=== PATIENT | male | born 1950 | race Caucasian/White ===

== ENCOUNTER 2016-05-14 06:47 | Day surgery (SDC) | payer BC ==
[2016-05-14] MEDS ORDERED: Sodium Phosphate,Monobasic/Sodium Phosphate,Dibasic Enema 133 ML Bottle RECTAL ONE (07:00)
[2016-05-14] MEDS ORDERED: Dextrose 5%-Lactated Ringers 1,000 ML IV SCH (07:00)
[2016-05-14] MEDS ORDERED: fentaNYL 100 MCG/2 ML SDV ONE (07:16)
[2016-05-14] MEDS ORDERED: Propofol 200 MG/20 ML SDV ONE (07:16)
[2016-05-14] MEDS ORDERED: Midazolam 1 MG/ML 2 ML SDV ONE (07:16)
[2016-05-14 11:19] VITALS: BP 129/80
--- NOTE | 2016-05-24 22:29 | OR ---
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 POSTOPERATIVE DIAGNOSIS: No gross evidence of recurrence of polypoid disease and colorectal anastomosis. PROCEDURES: Flexible sigmoidoscopy with electrical ablation of mucosa at colorectal anastomosis (44885). ANESTHESIA: IV sedation. INDICATION FOR PROCEDURE: The patient is status post a recent excision of some polypoid tissue and his colorectal anastomosis, for followup is undergoing a repeat flexible sigmoidoscopy with biopsies and/or excision as indicated. Potential risks including bleeding and perforation were discussed and the patient wishes to proceed. DETAILS OF PROCEDURE: The patient was taken to the room and placed in a left lateral decubitus position. IV sedation was administered, after which the digital rectal exam was performed and was unremarkable. Colonoscope was then passed up to the level of the colorectal anastomosis, which was only a few cm in and at this time the mucosa appeared to be uniformly normal around the anastomosis. The previous fistula site likewise at this time appeared to be healed to reinforce and remove any microscopic remaining adenomatous cells and the anastomosis was then circumferentially ablated with electrocautery cautery and at that point, no further problems were noted and the procedure was concluded. Plan will be to repeat the flexible sigmoidoscopy in three months. Dariusz Sheikh MD /[id number]
== END 2016-05-14 10:00 | disposition home or self-care (01) ==
LOC: JP.SDS 06:47
PROVIDERS: ATTEND Surgery
DX: K63.89 Other specified diseases of intestine (principal); E11.9 Type 2 diabetes mellitus without complications; Z88.0 Allergy status to penicillin; Z88.8 Allergy status to other drugs, medicaments and biological substances
CPT/HCPCS: 45346; J2250; J2704; J3010; J7042

== ENCOUNTER 2016-07-12 05:37 | Inpatient (IN) | payer BC, MEDICARE ==
[2016-07-12] MEDS ORDERED: Linezolid 600 MG in Premix Bag 1 BAG IV ONE (06:00)
[2016-07-12] MEDS ORDERED: fentaNYL 50 MCG/HR Transdermal Patch TRDERM SCH (06:00)
[2016-07-12] MEDS ORDERED: Gabapentin 300 MG Cap PO ONE (06:00)
[2016-07-12] MEDS ORDERED: Celecoxib 200 MG Cap PO ONE (06:03)
[2016-07-12] MEDS ORDERED: Meropenem 500 MG SDV ONE (06:38)
[2016-07-12] MEDS ORDERED: Bupivacaine 0.5%/EPINEPHrine 1:200,000 50 ML MDV ONE (06:39)
[2016-07-12] MEDS ORDERED: Propofol 200 MG/20 ML SDV ONE ×2 (07:09→08:50)
[2016-07-12] MEDS ORDERED: Neostigmine Methylsulfate 1 MG/ML 5 ML Syringe ONE (07:09)
[2016-07-12] MEDS ORDERED: Succinylcholine/Normal Saline 200 MG/10 ML Syringe ONE (07:09)
[2016-07-12] MEDS ORDERED: fentaNYL 250 MCG/5 ML SDV ONE (07:09)
[2016-07-12] MEDS ORDERED: Dexamethasone 4 MG/ML SDV ONE (07:09)
[2016-07-12] MEDS ORDERED: Ondansetron 4 MG/2 ML SDV ONE (07:09)
[2016-07-12] MEDS ORDERED: Rocuronium 50 MG/5 ML Vial ONE (07:09)
[2016-07-12] MEDS: Dextrose 5%-Lactated Ringers 1,000 ML IV SCH ×4 (07:17→20:55)
[2016-07-12] MEDS ORDERED: Naloxone 0.4 MG/ML SDV IVPUSH PRN (07:26)
[2016-07-12] MEDS: Morphine PF 150 MG/30 ML PCA Syringe IV PRN (07:32)
[2016-07-12] MEDS ORDERED: Linezolid 200 MG/100 ML Bag IRR ONE (08:15)
[2016-07-12] MEDS ORDERED: fentaNYL 100 MCG/2 ML SDV ONE (08:52)
[2016-07-12] MEDS ORDERED: hydrOXYzine HCl 50 MG/ML SDV IM ONE (09:32)
[2016-07-12] MEDS ORDERED: fentaNYL 100 MCG/2 ML SDV IVPUSH ONE (09:44)
[2016-07-12] MEDS ORDERED: Naloxone 0.4 MG/ML SDV IV PRN (12:03)
[2016-07-12] MEDS ORDERED: hydrOXYzine HCl 25 MG Tab PO PRN (12:06)
[2016-07-12] MEDS ORDERED: hydrOXYzine HCl 50 MG/ML SDV IM PRN (12:06)
[2016-07-12] MEDS ORDERED: Cyclobenzaprine 10 MG Tab PO PRN (12:07)
[2016-07-12] MEDS: VERIFY FENTANYL PATCH TOP SCH ×3 (13:24→20:59)
[2016-07-12] MEDS: Gabapentin 300 MG Cap PO SCH ×2 (14:28→20:58)
[2016-07-12] MEDS: Linezolid 600 MG in Premix Bag 1 BAG IV SCH (17:35)
[2016-07-12] MEDS ORDERED: LORazepam 2 MG/ML MDV IVPUSH PRN (20:04)
[2016-07-12] MEDS: Docusate Sodium 100 MG Cap PO SCH (20:58)
[2016-07-12] MEDS: Pravastatin 20 MG Tab PO SCH (20:59)
[2016-07-13] MEDS: Dextrose 5%-Lactated Ringers 1,000 ML IV SCH ×4 (02:30→21:25)
[2016-07-13] MEDS: Linezolid 600 MG in Premix Bag 1 BAG IV SCH ×2 (05:11→17:11)
[2016-07-13] MEDS: Morphine PF 150 MG/30 ML PCA Syringe IV PRN (08:59)
[2016-07-13] MEDS: Docusate Sodium 100 MG Cap PO SCH ×2 (09:10→20:35)
[2016-07-13] MEDS: Celecoxib 200 MG Cap PO SCH (09:10)
[2016-07-13] MEDS: Gabapentin 300 MG Cap PO SCH ×3 (09:10→20:36)
[2016-07-13] MEDS: Bisacodyl 5 MG Tab PO SCH ×2 (09:10→20:36)
[2016-07-13] MEDS: VERIFY FENTANYL PATCH TOP SCH (09:13)
--- NOTE | 2016-07-13 10:23 | PN ---
DATE OF SERVICE: 07/13/2016 SUBJECTIVE: Randy is postop day #1. He states his pain is controlled. He was very sleepy last night. His fentanyl patch was taken off. He does use a CPAP and slept well after that was placed. REVIEW OF SYSTEMS: Remainder of review of systems negative for any pertinent positives and negatives. OBJECTIVE: GENERAL: Randy Pollack is a 65-year-old male, alert and orientated. SKIN: Warm and dry. Color is good. VITAL SIGNS: TPR 99.5, 67, 18, blood pressure 122/62. O2 by pulse ox is 94%. HEENT: Negative. NECK: Supple. HEART: Regular rate and rhythm. LUNGS: Clear. ABDOMEN: Dressings dry and intact. Wells catheter put out 2760 mL of a light william urine. EXTREMITIES: Without peripheral edema. ASSESSMENT: Laparoscopic turned to open laparotomy with lysis of extensive adhesions and repair of recurrent incisional hernia with mesh, repair of incarcerated umbilical hernia with mesh, and excision of nodular mass of right lower quadrant abdominal wall 5.5 cm and placement of Vicryl mesh for recurrent incarcerated incisional and incarcerated umbilical hernia nodule, peritoneal mass underlining right lower quadrant abdominal wall, and extensive intraabdominal adhesions, on 07/12/2016. PLAN: 1. Decrease IV D5LR to 100 mL per hour. 2. Discontinue Wells. 3. Full liquid diet. 4. Dulcolax tabs 2 b.i.d. scheduled. 5. Aspirin 81 mg p.o. at bedtime. 6. Pravachol 10 mg p.o. at bedtime. 7. Good pulmonary toilet encouraged. 8. We will evaluate p.r.n. or in a.m. Maria Luisa Hale PA-C /[id number]
[2016-07-13] MEDS ORDERED: Ibuprofen 600 MG Tab PO PRN (17:36)
[2016-07-13] MEDS: Pravastatin 20 MG Tab PO SCH (20:36)
[2016-07-13] MEDS: Aspirin 81 MG Tab.EC PO SCH (20:36)
[2016-07-13] MEDS ORDERED: Pravastatin 20 MG Tab PO SCH (21:00)
[2016-07-14] MEDS: Linezolid 600 MG in Premix Bag 1 BAG IV SCH (05:33)
[2016-07-14] MEDS ORDERED: Bisacodyl 5 MG Tab PO PRN (07:23)
[2016-07-14] MEDS: Dextrose 5%-Lactated Ringers 1,000 ML IV SCH ×2 (08:29→19:54)
[2016-07-14] MEDS: Celecoxib 200 MG Cap PO SCH (08:31)
[2016-07-14] MEDS: Docusate Sodium 100 MG Cap PO SCH ×2 (08:31→20:58)
[2016-07-14] MEDS: oxyCODONE 5 MG Tab PO SCH ×3 (08:31→23:10)
[2016-07-14] MEDS: Gabapentin 300 MG Cap PO SCH ×3 (08:32→20:58)
--- NOTE | 2016-07-14 09:53 | PN ---
DATE OF SERVICE: 07/14/2016 SUBJECTIVE: Randy states his pain has been controlled. He did have a temp max of 101.4, and it did come down a little bit. He has been up ambulating. Denies any other associated signs and symptoms. OBJECTIVE: GENERAL: Randy is a 65-year-old male. VITAL SIGNS: TPR is 99.5, 64, 12, blood pressure 146/80. HEENT: Negative. NECK: Supple. HEART: Regular rate and rhythm. LUNGS: Clear. ABDOMEN: Dressings dry and intact. Abdominal binder is on. EXTREMITIES: SCDs are currently off presently. NEURO: Intact. SKIN: Warm and dry. ASSESSMENT: Laparoscopy turned to open laparotomy with lysis of extensive adhesions; repair of recurrent incisional hernia with mesh; repair of incarcerated umbilical hernia with mesh; excision of nodule or mass of right lower quadrant abdominal wall, 5.5 cm; placement of Vicryl mesh for recurrent incarcerated incisional and incarcerated umbilical hernia; nodule of the peritoneal mass underlining right lower quadrant abdominal wall and extensive intraabdominal adhesions, on 07/12/2016. PLAN: 1. Regular diet. 2. Dulcolax tabs changed to p.r.n. 3. Oxycodone 10 mg p.o. q.8 hours scheduled. 4. Continue good pulmonary toilet. 5. 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 6. We will evaluate p.r.n. or in a.m. Maria Luisa Hale PA-C /[id number]
[2016-07-14] MEDS: Linezolid 600 MG Tab PO SCH (17:43)
[2016-07-14] MEDS: Pravastatin 20 MG Tab PO SCH (20:58)
[2016-07-14] MEDS: Aspirin 81 MG Tab.EC PO SCH (20:58)
[2016-07-15] MEDS: Morphine PF 150 MG/30 ML PCA Syringe IV PRN (01:29)
[2016-07-15] MEDS: Dextrose 5%-Lactated Ringers 1,000 ML IV SCH (05:43)
[2016-07-15] MEDS: Linezolid 600 MG Tab PO SCH ×2 (05:43→18:54)
[2016-07-15] MEDS ORDERED: Sodium Chloride 0.9% 10 ML Syringe IV SCH (07:30)
[2016-07-15] MEDS ORDERED: oxyCODONE 5 MG Tab PO SCH (08:00)
[2016-07-15] MEDS: Celecoxib 200 MG Cap PO SCH (08:44)
[2016-07-15] MEDS: Docusate Sodium 100 MG Cap PO SCH ×2 (08:44→19:59)
[2016-07-15] MEDS: Gabapentin 300 MG Cap PO SCH ×3 (08:44→19:59)
[2016-07-15] MEDS: oxyCODONE 5 MG Tab PO SCH ×2 (15:31→21:51)
[2016-07-15] MEDS: Pravastatin 20 MG Tab PO SCH (19:59)
[2016-07-15] MEDS: Aspirin 81 MG Tab.EC PO SCH (20:00)
[2016-07-16] MEDS: oxyCODONE 5 MG Tab PO SCH (04:00)
[2016-07-16] MEDS: Linezolid 600 MG Tab PO SCH (06:01)
[2016-07-16 07:49] VITALS: BP 162/84
--- NOTE | 2016-07-16 09:59 | PN ---
DATE OF SERVICE: 07/15/2016 The patient has been afebrile with stable vital signs. He's required a little bit of MEDICAL HISTORIAN in addition to the oral oxycodone. We will move the oxycodone up to 10 mg q.6 hours and then switch the Dilaudid to oral version. If his pain control on this regimen is adequate, he will likely be ready to go home tomorrow. Otherwise, he is eating well and moving his bowels satisfactorily. Dariusz Sheikh MD /[id number]
--- NOTE | 2016-07-16 14:20 | DISCH ---
FINAL DIAGNOSES: 1. Recurrent incarcerated incisional and incarcerated umbilical hernias. 2. Nodular peritoneal mass underlying right lower quadrant abdominal wall. 3. Extensive intraabdominal adhesions. 4. History of hepatitis C. 5. Type 2 diabetes mellitus, diet controlled. 6. History of colonic adenomatous polyps. OPERATIVE PROCEDURE: This was done on 07/12/2016, laparoscopy converted to open laparotomy with lysis of extensive adhesions; 1. Repair of recurrent incarcerated incisional hernia with mesh. 2. Repair of incarcerated umbilical hernia with mesh. 3. Excision of peritoneal nodular mass underlying right lower quadrant abdominal wall. 4. Placement of Vicryl mesh to displace viscera from pelvic and abdominal wall to limit recurrent adhesion formation. HOSPITAL COURSE: This is a 65-year-old male presenting with a quite large recurrent incisional hernia. The abdomen was initially approached laparoscopically, but it was found to be quite hostile in terms of very extensive adhesions. Given this, an open laparotomy was used and after lysis of extensive adhesions, the hernia was repaired as outlined above. There was a nodular mass with maybe some fat necrosis underlying the right lower quadrant abdominal wall. Pathology on this is pending, but again this is most likely going to be an area of fat necrosis. Postoperatively, the patient is presently tolerating a regular diet and moving his bowels. He is normally on oxycodone 10 mg 2 a day. At the time of discharge, he will be taking oxycodone 10 mg q.4 to 6 hours p.r.n. Additional 50 of those are written. Otherwise, he will continue his previous home medications. Follow up with Dr. Sheikh in [facility] on 07/21/2016.
--- NOTE | 2016-07-21 15:25 | OR ---
DATE OF PROCEDURE: 07/12/2016 PREOPERATIVE DIAGNOSIS: Recurrent incisional hernia. POSTOPERATIVE DIAGNOSES: 1. Recurrent incarcerated incisional hernia. 2. Incarcerated umbilical hernia. 3. Nodular peritoneal mass underlying right lower quadrant abdominal wall. 4. Extensive intra-abdominal adhesions. OPERATIVE PROCEDURE: Diagnostic laparoscopy converted to laparotomy with lysis of extensive adhesions and: 1. Repair of recurrent incarcerated incisional hernia with mesh (83092, 25139). 2. Repair of incarcerated umbilical hernia (73161). 3. Excision of peritoneal nodular mass underlying right lower quadrant abdominal wall (22385). 4. Placement of Vicryl mesh to displace small bowel from pelvic and abdominal castañeda to limit recurrent adhesion formation (61632). ANESTHESIA: General. PACS SPECIALIST: Maria Luisa Hale PA-C. INDICATIONS FOR PROCEDURE: This is a 65-year-old male presenting with a large recurrent incisional hernia, it probably containing some incarcerated component based on the clinical findings. The plan is to proceed with a diagnostic laparoscopy, laparotomy if necessary, and repair of the hernia with mesh. Potential risks include bleeding, infection, injury to underlying viscera, problems with the mesh becoming infected or the hernia recurring as well as possibility of cardiopulmonary, septic, or hemorrhagic complications leading to were all discussed, and the patient wishes to proceed. DETAILS OF PROCEDURE: The patient was taken to the operating room and placed in a supine position. After general endotracheal anesthesia was induced, a Wells catheter was inserted and the abdomen was prepped and draped. In the right lateral mid abdomen, a transverse incision was made. The peritoneal cavity entered under direct vision and inflated to 15 mmHg pressure with CO2. The patient was noted to have essentially a capsular adhesions throughout most of the peritoneal cavity and the decision was made at that point to proceed with an open approach. The trocar was removed and the peritoneal cavity deflated. A midline incision was then made predominately in the lower half of the abdomen, but extending somewhat above the umbilicus. This was carried down through the skin and subcutaneous tissue. Two components of the hernia were identified, 1 was an incisional hernia. This largely was extending above the umbilicus and there was also a large umbilical hernia, both of these contained incarcerated component with small and large bowel along with omentum incarcerated within the hernia sac. These were then contralaterally taken down with a combination of cautery and blunt dissection, and in the case of the bowel attachments close to the plane of dissection with sharp dissection. Eventually, all of the viscera were returned to the abdomen and hernia sac excised standing at each location. During the course of dissection, the patient was noted to have a nodular mass underlying the right lower quadrant abdominal wall. This would be potentially some fat necrosis related to the omental adhesions in that area but the diagnosis certainly is not entirely certain. This was excised and sent as pathologic specimen. The specimen when delivered from the abdomen, was measured at 5.5 cm. At this point, a Ventrio ST hernia patch and mesh was mapped out. This was a 22 x 27 cm mesh following the fascia in the midline were to approximate the final location for the fixation of the mesh. There were small wu made on the abdominal wall where subsequent sutures were passed to pull the sutures up and attach to the mesh. The mesh was also then marked and 2-0 Vicryl sutures placed on the polypropylene mesh roughly 5 to 6 cm intervals around the circumference of the mesh. Mesh was soaked in antibiotic-containing saline solution and then placed in intraperitoneal location with the polypropylene side facing the abdominal wall at the premarked location, the sutures were then pulled up. Due to the extent of the previous adhesions and the desire to minimize additional adhesion formation, a 12 inch segment of Vicryl mesh was then placed underneath the incision and extended from there down along the pelvic and abdominal castañeda. The lower half of the sutures were then placed and then pulled up thus fixing the mesh in general position covering both the incisional and umbilical hernias sites. Once easily replaced, the abdomen was irrigated with antibiotic-containing saline solution, once again underside of the shelf of the mesh, mesh was then additionally fixed circumferentially with titanium tacking screws. Once these were in place, the midline fascia was then approximated with #2 Vicryl stitch closing the fascia in the vertical midline in terms of orientation. The subcutaneous tissue was then approximated with some 3-0 Vicryl stitch and the skin with ruddy. No drains were placed. The patient was taken to the recovery room in satisfactory condition. Physician doctor assistant, Maria Luisa Hale, played an essential role in assisting in this case, helping to position the patient, retract structures as needed, as well as suturing and stapling when indicated. Her presence improved the patient's safety and decreased the operative time. Dariusz Sheikh MD /[id number]
== END 2016-07-16 08:20 | disposition home or self-care (01) | DRG 228 ==
LOC: JP.2SS 05:37 → UNDOADMIN 05:37 → JP.MS 05:37 → JP.SDS 05:37 → EDSTATUS 07:30 → JP.2SS 11:05
PROVIDERS: ADMIT Surgery; ATTEND Surgery
PROC: 3E0M05Z Introduction of Adhesion Barrier into Peritoneal Cavity, Open Approach (ICD-10-PCS; principal; 2016-07-12)
PROC: 0WJF4ZZ Inspection of Abdominal Wall, Percutaneous Endoscopic Approach (ICD-10-PCS; principal; 2016-07-12)
PROC: 0DBW0ZZ Excision of Peritoneum, Open Approach (ICD-10-PCS; principal; 2016-07-12)
PROC: 0WUF0JZ Supplement Abdominal Wall with Synthetic Substitute, Open Approach (ICD-10-PCS; principal; 2016-07-12)
PROC: 0WQF0ZZ Repair Abdominal Wall, Open Approach (ICD-10-PCS; principal; 2016-07-12)
DX: K42.0 Umbilical hernia with obstruction, without gangrene (principal); K43.0 Incisional hernia with obstruction, without gangrene; K66.8 Other specified disorders of peritoneum; G47.30 Sleep apnea, unspecified; E11.9 Type 2 diabetes mellitus without complications; M19.90 Unspecified osteoarthritis, unspecified site; E78.5 Hyperlipidemia, unspecified; Z79.84 Long term (current) use of oral hypoglycemic drugs; Z79.82 Long term (current) use of aspirin; Z88.0 Allergy status to penicillin; B18.2 Chronic viral hepatitis C; Z85.828 Personal history of other malignant neoplasm of skin; Z87.891 Personal history of nicotine dependence
CPT/HCPCS: 88302; 88304; 94762; A9270-GY; C1781; J1100; J2020; J2185; J2270; J2405; J2704; J3010; J3410; J7042

== ENCOUNTER 2016-09-30 05:35 | Day surgery (SDC) | payer BC, MEDICARE ==
[2016-09-30] MEDS ORDERED: Dextrose 5%-Lactated Ringers 1,000 ML IV SCH (06:00)
[2016-09-30] MEDS ORDERED: Propofol 200 MG/20 ML SDV ONE (07:03)
[2016-09-30] MEDS ORDERED: fentaNYL 100 MCG/2 ML SDV ONE (07:03)
[2016-09-30 08:52] VITALS: BP 153/79
--- NOTE | 2016-10-05 08:30 | OR ---
DATE OF PROCEDURE: 09/30/2016 PREOPERATIVE DIAGNOSIS: History of polypoid changes at the colorectal anastomosis. POSTOPERATIVE DIAGNOSIS: No evident recurrent polypoid changes at colorectal anastomosis. OPERATIVE PROCEDURE: Flexible sigmoidoscopy. ANESTHESIA: IV sedation. INDICATION FOR PROCEDURE: A 65-year-old male, status post previous low anterior resection, who recently was noted to have some polypoid changes, which were both excised by means of biopsy forceps, as well obliterated by means of cautery. He is to have a followup flexible sigmoidoscopy at this time for the purpose of checking to see if there is any recurrent polypoid disease and treat that, if identified. Potential risks including bleeding and perforation were discussed, and the patient wishes to proceed. DETAILS OF PROCEDURE: The patient was taken to the operative room after receiving the preoperative enema in the preoperative area. IV sedation was given, after the patient was placed in a left lateral decubitus position, and then the initial digital rectal exam was performed, and it was unremarkable. The flexible sigmoidoscope was then passed into the rectum and up to the level of the colorectal anastomosis. There is a fair bit of stool present, and using water, this was eventually able to be cleared, and the anastomosis at this point appeared to be quite unremarkable, there being no evident recurrent polypoid disease and less in the way of inflammation that had been seen previously. The scope easily passed through the area and above that no additional pathology was seen. The scope was withdrawn and the procedure concluded. The patient will be set up for a full colonoscopy probably in January, with formal prep to be done at that time. Dariusz Sheikh MD /[id number]
== END 2016-09-30 08:45 | disposition home or self-care (01) ==
LOC: JP.SDS 05:35
PROVIDERS: ATTEND Surgery
DX: Z86.010 Personal history of colon polyps (principal); E11.9 Type 2 diabetes mellitus without complications; E78.00 Pure hypercholesterolemia, unspecified; Z88.0 Allergy status to penicillin; Z88.8 Allergy status to other drugs, medicaments and biological substances
CPT/HCPCS: 45330; J2704; J3010; J7042

== ENCOUNTER 2017-01-24 06:03 | Day surgery (SDC) | payer BC, MEDICARE ==
[2017-01-24] MEDS ORDERED: Dextrose 5%-Lactated Ringers 1,000 ML IV SCH (06:30)
[2017-01-24] MEDS ORDERED: Propofol 200 MG/20 ML SDV ONE (07:16)
[2017-01-24] MEDS ORDERED: fentaNYL 100 MCG/2 ML SDV ONE (07:16)
[2017-01-24] MEDS ORDERED: Midazolam 1 MG/ML 2 ML SDV ONE (07:16)
[2017-01-24 09:26] VITALS: BP 160/87
--- NOTE | 2017-01-27 10:34 | OR ---
DATE OF PROCEDURE: 01/24/2017 PREOPERATIVE DIAGNOSIS: History of adenomatous colon polyps, along with recurrent polyp at colorectal anastomosis. POSTOPERATIVE DIAGNOSES: 1. Raised area of soft tissue overlying colorectal anastomosis at the point of exposed staple. 2. Raised area in ascending colon. OPERATIVE PROCEDURES: Flexible colonoscopy with: 1. Biopsy of raised area of ascending colon (07617). 2. Injection of Zina ink at the site of the ascending colon lesion (23251). 3. Removal of foreign body (staple at the colorectal anastomosis) (93107). 4. Biopsies of soft tissue at colorectal anastomosis adjacent to a staple. 5. Ablation of the mucosa at the biopsy site of the colorectal anastomosis (82168). ANESTHESIA: IV sedation. INDICATION FOR PROCEDURE: A 66-year-old, status post a low anterior resection for what turned out to be a sessile adenomatous polyp. The patient has had some problems with stricturing in that area and did have some recurrent polypoid disease at the anastomosis. This was treated by means of excision and ablation, and he is here for followup of that to make sure nothing is recurring. He is also due, at this point, for a full colonoscopy. Potential risks of the procedure, including bleeding and perforation, were discussed, and the patient wishes to proceed. PROCEDURE IN DETAIL: The patient was taken to the operating room and placed in a left lateral decubitus position. IV sedation was administered, after which the initial digital rectal exam was performed and was unremarkable. Colonoscope was then passed up into the rectum and up to the area of the colorectal anastomosis. There was roughly a 2 mm bit of raised tissue adjacent to an exposed staple. Otherwise, the mucosa at this point appeared to be well healed with no signs of any recurrent polypoid disease. The scope was then passed to the level of the cecum. The patient had a somewhat raised lesion in the ascending colon. This may be simply normal mucosa with perhaps some lipomatous tissue underlying it, but biopsies were obtained to make sure this was not a flat-type polyp. Multiple biopsies were obtained at that level. The submucosa adjacent to it was injected with Zina ink in the event that findings were such that he needed to have a subsequent resection. The remainder of the colon, apart from the findings at the colorectal anastomosis, was unremarkable, apart from there being very few diverticula in the remaining left colon. At this point the foreign body, consisting of a staple, was removed. I suspect this was causing granulation tissue to form. That tissue, which was raised, adjacent to it was essentially excised by means of the biopsy forceps, and then, in the event this is polypoid tissue, that area was then ablated with the tip of the electrical cautery snare. At that point, no further problems were noted, and the scope was withdrawn. We will contact the patient regarding the pathology report and develop a plan based on that report. Dariusz Sheikh MD /[id number]
== END 2017-01-24 09:27 | disposition home or self-care (01) ==
LOC: JP.SDS 06:03
PROVIDERS: ATTEND Surgery
DX: Z09 Encounter for follow-up examination after completed treatment for conditions other than malignant neoplasm (principal); K57.30 Diverticulosis of large intestine without perforation or abscess without bleeding; T18.4XXA Foreign body in colon, initial encounter; D17.5 Benign lipomatous neoplasm of intra-abdominal organs; E11.9 Type 2 diabetes mellitus without complications; Z90.49 Acquired absence of other specified parts of digestive tract; G47.33 Obstructive sleep apnea (adult) (pediatric); E78.5 Hyperlipidemia, unspecified; Z86.010 Personal history of colon polyps; Z79.82 Long term (current) use of aspirin; Z79.899 Other long term (current) drug therapy; Z98.0 Intestinal bypass and anastomosis status; Z87.891 Personal history of nicotine dependence; Z99.89 Dependence on other enabling machines and devices; Z86.19 Personal history of other infectious and parasitic diseases; Z88.5 Allergy status to narcotic agent; Z88.0 Allergy status to penicillin
CPT/HCPCS: 45379; 45380; 45381; 45388; 88305; J2250; J2704; J3010; J7042

== ENCOUNTER 2018-03-13 05:30 | Day surgery (SDC) | payer BC ==
[~2018-03-13 05:30] MED LIST: Dextrose 5%-Lactated Ringers 1,000 ML IV SCH
[2018-03-13] MEDS ORDERED: Lactated Ringers 1,000 ML IV SCH (06:00)
[2018-03-13] MEDS ORDERED: Meropenem 500 MG in Sodium Chloride 0.9% 50 ML IV ONE (07:00)
[2018-03-13] MEDS ORDERED: Propofol 200 MG/20 ML SDV ONE (07:06)
[2018-03-13] MEDS ORDERED: fentaNYL 100 MCG/2 ML SDV ONE (07:06)
[2018-03-13] MEDS ORDERED: Midazolam 1 MG/ML 2 ML SDV ONE (07:06)
[2018-03-13] MEDS ORDERED: Ondansetron 4 MG/2 ML SDV IVPUSH ONE (08:20)
[2018-03-13] MEDS ORDERED: Ondansetron 4 MG Tab.DIS PO ONE (10:05)
[2018-03-13 10:18] VITALS: BP 159/96
--- NOTE | 2018-03-15 10:43 | OR ---
DATE OF PROCEDURE: 03/13/2018 PREOPERATIVE DIAGNOSIS: History of colonic adenomatous polyps. POSTOPERATIVE DIAGNOSIS: Normal colonoscopic examination. OPERATIVE PROCEDURE: Flexible colonoscopy. ANESTHESIA: IV sedation. INDICATION FOR PROCEDURE: This is a 67-year-old status post a sigmoid resection for an adenomatous polyp. He then had some leak from the anastomosis, which was treated conservatively and then had some recurrent adenomatous polypoid changes at the anastomosis that had previously been excised and/or ablated. The plan is to proceed with followup colonoscopy with biopsies and/or polypectomy as indicated. Potential risks including bleeding and perforation were discussed, and the patient wishes to proceed. DETAILS OF PROCEDURE: The patient was taken to the operating room and placed in a left lateral decubitus position. IV sedation was administered, after which the initial digital rectal exam was performed and was unremarkable. Colonoscope was then passed into the rectum with retroflexion revealing uncomplicated hemorrhoidal columns. The scope was eventually passed to the cecum. The area of the colorectal anastomosis was well visualized, and there was no evidence of any recurrent polypoid disease. There was some distortion of this area related to the postoperative scarring, but no stricturing or other specific pathology seen. The remainder of the examination showed some diverticular disease in the remaining left colon, but otherwise no additional polyps or other signs of neoplasia. The scope was then withdrawn, the above findings were reconfirmed, and the procedure then concluded. Given the patient's history, I think we probably would intend to repeat a colonoscopy in 1 year to make sure that nothing is recurring at the anastomotic site at that point. Dariusz Sheikh MD Job #: [id number]
== END 2018-03-13 10:30 | disposition home or self-care (01) ==
LOC: JP.SDS 05:30
PROVIDERS: ATTEND Surgery
DX: Z12.11 Encounter for screening for malignant neoplasm of colon (principal); K57.30 Diverticulosis of large intestine without perforation or abscess without bleeding; K64.9 Unspecified hemorrhoids; E11.9 Type 2 diabetes mellitus without complications; Z86.010 Personal history of colon polyps; Z98.0 Intestinal bypass and anastomosis status
CPT/HCPCS: 45378; A9270; J2185; J2250; J2405; J2704; J3010; J7042; J7050

== ENCOUNTER 2018-10-30 06:03 | Day surgery (SDC) | payer BC ==
[2018-10-30] MEDS ORDERED: Lactated Ringers 1,000 ML IV SCH (06:30)
[2018-10-30] MEDS ORDERED: Nozin Nasal Sanitizer NASBOTH ONE (06:30)
[2018-10-30] MEDS ORDERED: Bupivacaine 0.5% 30 ML SDV ONE (06:46)
[2018-10-30] MEDS ORDERED: ceFAZolin 1 GM in Premix Bag 1 BAG IV ONE (07:30)
[2018-10-30] MEDS ORDERED: Glycopyrrolate 0.2 MG/ML 5 ML MDV ONE (07:35)
[2018-10-30] MEDS ORDERED: Propofol 200 MG/20 ML SDV ONE (07:35)
[2018-10-30] MEDS ORDERED: Neostigmine Methylsulfate 1 MG/ML 5 ML Syringe ONE (07:35)
[2018-10-30] MEDS ORDERED: Ondansetron 4 MG/2 ML SDV ONE (07:35)
[2018-10-30] MEDS ORDERED: Rocuronium 50 MG/5 ML Vial ONE (07:35)
[2018-10-30] MEDS ORDERED: Dexamethasone 4 MG/ML SDV ONE (07:35)
[2018-10-30] MEDS ORDERED: fentaNYL 250 MCG/5 ML SDV ONE (07:35)
[2018-10-30] MEDS ORDERED: Acetaminophen/oxyCODONE 325-10 MG Tab PO PRN (10:32)
[2018-10-30 10:38] VITALS: BP 147/90; PULSE 64
--- NOTE | 2018-11-15 15:30 | OR ---
DATE OF PROCEDURE: 10/30/2018 SURGEON: Scott Harris MD PREOPERATIVE DIAGNOSES: 1. Medial meniscus tear, left knee. 2. Chondromalacia, left knee. POSTOPERATIVE DIAGNOSES: 1. Degenerative medial meniscus tear, left knee. 2. Chondromalacia, medial femoral condyle and patellofemoral joint. 3. Loose bodies. PROCEDURE: Arthroscopy of left knee with debridement of posterior horn medial meniscus, chondroplasty medial femoral condyle and trochlear groove, and removal of multiple loose bodies. ANESTHESIA: General. INDICATIONS: Mr. Pollack is a 68-year-old gentleman with a history of progressive pain in his left knee over the past several weeks. Pain is in the medial aspect of the knee. He has failed conservative treatment. MRI is consistent with degenerative tear of the medial meniscus and early degenerative changes of the medial compartment. He now presents for arthroscopic debridement of meniscus. Risks, benefits, potential complications of the procedure were discussed. PROCEDURE IN DETAIL: After adequate anesthesia was obtained, the patient placed supine with a tourniquet about the left upper thigh. Left leg was prepped and draped in the sterile fashion. Leg was exsanguinated and tourniquet inflated to 300 mmHg pressure. Standard inferior, medial, and lateral portals were established. Immediately upon placing the scope into the suprapatellar pouch, loose articular cartilage fragments were visible. Majority of these was very small with 2 larger ones measuring approximately 3 x 2 x 2 mm. Pulling back into the patellofemoral joint, grade 3 and early grade 4 changes were noted in the main portion of the trochlea. No significant chondral flaps were present. Posterior aspect of the patella showed some softening and some early grade 2 changes without full-thickness loss. Moving into the medial compartment, degenerative changes noted in the posterior horn of the meniscus without a chloe tear. Additional small loose articular fragments were present. Grade 3 and early grade 4 changes noted over the medial femoral condyle with 2 areas of chondral flaps, which were unstable. Chondroplasty was performed over the medial femoral condyle, removing loose articular fragments. Loose bodies were removed with the shaver. Intercondylar notch revealed intact ACL and PCL. Lateral compartment showed intact articular cartilage as well as intact meniscus. Further loose bodies were removed from the suprapatellar pouch. The medial and lateral gutters were evaluated and no other loose bodies were identified. The knee was drained. Scope was withdrawn. Port sites were closed in a standard fashion, infiltrated with Marcaine, and a sterile dressing was applied. The patient tolerated the procedure very well. There were no complications. He was taken from the operating room in stable condition. Scott Harris MD /[id number]
== END 2018-10-30 11:10 | disposition home or self-care (01) ==
LOC: JP.SDS 06:03
PROVIDERS: ATTEND Specialist
DX: M23.322 Other meniscus derangements, posterior horn of medial meniscus, left knee (principal); M22.42 Chondromalacia patellae, left knee; E11.9 Type 2 diabetes mellitus without complications; E78.5 Hyperlipidemia, unspecified; B19.20 Unspecified viral hepatitis C without hepatic coma; Z88.0 Allergy status to penicillin; Z88.5 Allergy status to narcotic agent; Z79.82 Long term (current) use of aspirin; Z79.1 Long term (current) use of non-steroidal anti-inflammatories (NSAID); Z79.899 Other long term (current) drug therapy
CPT/HCPCS: 29877; 36415; 80048; 85027; A9270; J0690; J1100; J2405; J2704; J2710; J3010; J3490; J7120

== ENCOUNTER 2019-09-21 07:50 | Day surgery (SDC) | payer BC ==
[~2019-09-21 07:50] MED LIST changes: -Dextrose 5%-Lactated Ringers 1,000 ML IV SCH; +Midazolam 1 MG/ML 2 ML SDV ONE; +Propofol 200 MG/20 ML SDV ONE; +fentaNYL 100 MCG/2 ML SDV ONE
[2019-09-21] MEDS ORDERED: Dextrose 5%-Lactated Ringers 1,000 ML IV SCH (08:15)
[2019-09-21 11:50] VITALS: BP 129/69; PULSE 57
--- OUTSIDE RECORDS SUMMARY | 2019-09-25 11:38 | XMSREPORT | Referral Summary ---
:1950 Author Organization [employer] Address [address] [address] Phone Care Team Providers Name Role Phone Neil Sunshine APRN, CNP Primary Care Provider Reason for Referral Office Visit (Routine) Status Reason Specialty Diagnoses / Referred By Referred To Procedures Contact Contact New Request Diagnoses Controlled type 2 diabetes mellitus without complication, without long-term current use of insulin (HCC) Goyo Sunshine, Procedures CONTINUE CURRENT WEIGHT MGMT TREATMENT PLAN ALEK EDWARDS [address] [place] [address] Office Visit (Routine) Status Reason Specialty Diagnoses / Referred By Referred To Procedures Contact Contact Authorized Diagnoses H/O adenomatous polyp of colon Goyo Sunshine, Dariusz Gallardo MD APRN, PRODUCTION OFFICER [address] [facility] [id number] [place] [address] Phone: [phone] Phone: Fax: Reason for Visit Reason Comments Follow Up DM follow up labs Encounter Details Date Type Department Care Team Description 08/23/2019 Telehealth Mapidy-Goyo Guerar, Contr olled type 2 diabetes mellitus without complication, without long-term current use of insulin (HCC) (Primary Dx); [facility] INTERNAL [employer] 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 Devices Supply requested: C-pap supplies Diagnosis: 786.03 1 Each Active MISC Length of need lifetime 3 Misc. Devices Supply requested: 100 Each 4 Active Misc edin test strips 5 and lancets Diagnosis: 250.00 Misc. Devices Supply requested: 1 Each Active Misc Auto pap with 8 5 to 15 cm of water pressure. Diagnosis Obstructive sleep apnea. Misc. Devices by Does not apply 0 Active (BIPAP DEVICE) route. 6 loperamide Take 1 Cap by 60 Cap 12 Activ e (IMODIUM) 2 MG mouth four times 8 capsule a day as needed for Diarrhea. aspirin EC 81 MG Take 81 mg by 0 Active tablet mouth one time a 9 day. Do not split or crush. NEW 1 Each by Does 0 Activ e DRUGIndications: not apply route. New Coat contract Indications: New signed 10/10/2018 Coat contract - good until signed 10/10/2018 10/11/2019 - good until 10/11/2019 celecoxib TAKE ONE CAPSULE 90 Cap 2 Act so (CELEBREX) 200 MG BY MOUTH DAILY 9 capsule acetaminophen Take 1,000 mg by 0 Active (TYLENOL) 500 MG mouth every six 9 tablet hours as needed. Limit acetaminophen to 4000 mg per day from all sources. pravastatin Take 1 Tab by 90 Tab 3 Acti ve (Pravachol) 10 MG mouth every 0 tablet evening. diphenoxylate-atr Take 1-2 Tabs by 30 Tab 1 Active opine (Lomotil) mouth four times 0 2.5-0.025 MG oral a day as needed tablet for Diarrhea (due to low anterior resction syndrome and frequent bowel movements). Melatonin 5 MG Take 5 mg by 0 08/27/19 Di scontinued Tablet mouth at bedtime 9 20 (Co urse of as needed for treatm ent Sleep. completed) Eluxadoline Take 1 Tab by 60 Tab 0 09/19/19 Disc ontinued (Viberzi) 75 MG mouth two times a 0 20 (Adjustment of Tablet day. dose) oxyCODONE Take 1 Tab by 35 Tab 0 08/31/19 Discon tinued (Roxicodone) 5 MG mouth three times 0 20 (Course of immediate release a day for 7 days, treatment tabletIndications THEN 1 Tab two completed) : Chronic Pain times a day for 7 days. Start Date: 08-20-2019 Indications: Chronic Pain documented as of this encounter (statuses as of 09/19/2019) Active Problems Problem Noted Date Status post left knee replacement 02/06/2019 COAT Treatment Agreement signed 10/10/2018 10/10/2018 Overview: Riosord score-opioid dep(15) + MEQ 22.5- 45 (5)=20 Status post left hip replacement 02/06/2018 Status post right hip replacement 11/25/2017 Right hip pain 11/04/2017 Overview: Added automatically from request for cee piña [id number] Nocturia 02/09/2017 History of low anterior resection of rectum 08/25/2016 HCD (health care directive) 07/06/2016 Recurrent incisional hernia 06/09/2016 Massive bowel resection syndrome 10/30/2015 Dyslipidemia 10/30/2015 Large bowel anastomotic leak 10/01/2015 H/O adenomatous polyp of colon 04/24/2015 Other secondary osteoarthritis of multiple sites 04/23 Controlled type 2 diabetes mellitus without complicati on, without 04/29/2010 long-term current use of insulin Overview: IMO Update 12/01 Hepatitis C carrier 03/06/2008 Overview: IMO Update 12/01. Showed positive Hepati tis C in 1997, but negative for active infection. He has been tested twice and it was negative. documented as of this encounter (statuses as of 09/19/2019) Resolved Problems Problem Noted Date Resolved Date Left hip pain 01/17/2018 12/26/2018 Overview: Added automatically from request for cee piña [id number] Skin cyst 04/24/2015 01/29/2016 Neck pain 03/09/2012 03/27/2013 Basal cell carcinoma 09/23/2011 03/09/2012 Pure hypercholesterolemia 04/29/2010 10/30/2015 documented as of this encounter (statuses as of 09/19/2019) Immunizations Name Administration Dates Next Due Hepatitis A NOS 10/09/2009, 04/10/2009 Hepatitis A, Adult 10/09/2009, 04/10/2009 Hepatitis B, Adult 10/09/2009, 05/20/2009, 04/10/2009 Influenza (Historic Use Only) 02/04/2013, 03/09/2012 Influenza A H1n1 03/10/2009 Influenza Quad Preservative Free 02/06/2015 Influenza Seasonal Inj A,B 12/14/2013, 02/04/2013 Influenza Seasonal Inj A,B High Dose 12/19/2018, 11/18/2017, 02/03/2017, 01/29/2016 Influenza Seasonal Inj A,B 03/09/2012 Preservative Free Pneumococcal Conjugate, 01/29/2016 (Prevnar)13-valent Pneumovax 23 12/26/2018, 04/08/2010 TD >7Yrs Preservative Free 04/03/2009, 01/01/1999 TD >7yrs With Preservative 04/03/2009, 01/01/1999 Tdap >7 years 03/04/2016 Zoster Zostavax (Shingles) 03/09/2012 documented as of this encounter Social History Tobacco Use Types Packs/Day Years Used Date Former Smoker Cigarettes 1 6 Smokeless Tobacco: Never Used Comments: quit 35 years ago Alcohol Use Drinks/Week oz/Week Comments No Sex Assigned at Date Recorded Male 11/16/2017 11:52 AM CDT COVID-19 Exposure Response Date Recorded In the last month, have you been in contact with No / Unsure 08/21/2019 8:47 AM CDT someone who was confirmed or suspected to have Coronavirus / COVID-19? documented as of this encounter Functional Status Functional Status Response Date of Assessment Patient's Vision Adequate to Safely Complete Daily Yes 01/31/2018 Activities Patient's Memory Adequate to Safely Complete Daily Yes 01/31/2018 Activities Cognitive Status Response Date of Assessment Patient's Judgment Adequate to Safely Complete Daily Yes 01/31/2018 Activities documented as of this encounter Progress Notes Goyo Sunshine, JERRY, ALEK - 08/27/2019 9:00 AM CDT Chief Complaint Patient presents with Follow Up DM follow up labs History of Present Illness: Randy Pollack is a 68 year old male with a history of type 2 diabetes, dyslipidemia, adenomatous colon polyps, and chronic opiate use secondary to massive bowel resection syndrome. The patient is not on any medications for the diabetes, he tries to stay as active as possible and maintain healthy diet choices. He does not check his blood sugars routinely at home. He feels well without any vision orneuropathic changes, no polyuria polydipsia or polyphagia. He does note that his diet has been lessthan ideal lately as they have been doing a lot of entertaining and that typically has involved large meals. He does have a history of dyslipidemia, he is on pravastatin 10 mg daily. Lipid levels have been satisfactory with that. He tolerates medication without difficulty. He does have a history of massive bowel resection syndrome with significant diarrhea. He has been on high doses of oxycodonefor quite some time for management of that. He has been working with our clinical pharmacist and has been tapering down with the thought of stopping the oxycodone and starting Viberzi. Currently he is taking 10 mg of oxycodone per day and that is not improving the diarrhea symptoms at all. He at this point intends to just stop the oxycodone and start the Viberzi. He also has a history of adenomatous colon polyps, last colonoscopy was a little more than a year ago with a 1 year repeat recommendedat that time. Review of Systems Constitutional: Negative for chills, fever and malaise/fatigue. HENT: Negative for congestion, ear pain and sore throat. Respiratory: Negative for cough, sputum production, shortness of breath and wheezing. Cardiovascular: Negative for chest pain, palpitations, claudication and leg swelling. Gastrointestinal: Positive for diarrhea. Skin: Negative for itching and rash. Neurological: Negative for dizziness, tingling and headaches. Past Medical History: Diagnosis Date Actinic keratoses Adenomatous colon polyp 09/23/2011 Altered gait 01/09/2018 Apnea 03/06/2008 Basal cell carcinoma 09/23/2011 Chronic left hip pain 01/09/2018 Fairly acute onset, pain x4 months, progressively getting worse. Chronic pain syndrome 12/14/2013 [facility] Agreement for Narcotic/Opioid Treatment. 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 Repeat in 5 years COLONOSCOPY 05/06/2015 repeat in 1yr per dr gallardo COLONOSCOPY,BIOPSY 01/27/2016 COLONOSCOPY,BIOPSY 01/24/2017 COLONOSCOPY,FLEX,DIAGNOSTIC 03/13/2018 HIP ARTHROPLASTY Right 11/16/2017 Procedure: RIGHT HIP REPLACEMENT; Surgeon: Leandro Fierro MD; Location: [address] OR HIP ARTHROPLASTY Left 01/31/2018 Procedure: LEFT HIP REPLACEMENT; Surgeon: Leandro Fierro MD; Location: [address] OR INCISIONAL HERNIA REPAIR -- lap repair of recurrent incisional hernia JOINT REPLACEMENT right knee partial MOBILIZE SPLENIC FLEX 05/08/2015 PART REMOVAL COLON W COLOPROCTOSTOMY 05/08/2015 REMOVAL ANAL FISTULA,SUBCUTANEOUS REMOVAL OF PERITONEAL FOREIGN BODY FROM PERITONEAL CAVITY 05/08/2015 REPAIR RECURR INCIS HERNIA,MELANIE 07/12/2016 REPAIR SLIDING INGUINAL HERNIA 2-5-13 RESECT SMALL INTEST,SINGL RESEC/ANAS 05/08/2015 SECD CLOS SURG WND EXTEN/COMPLIC 04/2015 SHOULDER SURGERY right for laburm tear SIGMOIDOSCOPE W/SUBMUC INJ 02/24/2016 SIGMOIDOSCOPY,CTRL BLEEDING 02/24/2016 SIGMOIDOSCOPY,DIAGNOSTIC 11/10/2015 SIGMOIDOSCOPY,DIAGNOSTIC 09/30/2016 SKIN CANCER EXCISION Basal cell carcinoma, lesion on nose. SMALL INTESTINE SURGERY 2001 SUSPEND BOWEL W/PROSTHESIS 05/08/2015 TOTAL KNEE ARTHROPLASTY Left 01/03/2019 UMBILICAL HERNIA REPAIR Current Outpatient Medications Medication Sig oxyCODONE (Roxicodone) 5 MG immediate release tablet Take 1 Tab by mouth three times a day for 7days, THEN 1 Tab two times a day for 7 days. Start Date: 08-20-2019 Indications: Chronic Pain diphenoxylate-atropine (Lomotil) 2.5-0.025 MG oral tablet Take 1-2 Tabs by mouth four times a day as needed for Diarrhea (due to low anterior resction syndrome and frequent bowel movements). pravastatin (Pravachol) 10 MG tablet Take 1 Tab by mouth every evening. celecoxib (CELEBREX) 200 MG capsule TAKE ONE CAPSULE BY MOUTH DAILY acetaminophen (TYLENOL) 500 MG tablet Take 1,000 mg by mouth every six hours as needed. Limit acetaminophen to 4000 mg per day from all sources. NEW DRUG 1 Each by Does not apply route. Indications: New Coat contract signed 10/10/2018 - gooduntil 10/11/2019 aspirin EC 81 MG tablet Take 81 mg by mouth one time a day. Do not split or crush. loperamide (IMODIUM) 2 MG capsule Take 1 Cap by mouth four times a day as needed for Diarrhea. Misc. Devices (BIPAP DEVICE) by Does not apply route. Misc. Devices Misc Supply requested: Auto pap with 8 to 15 cm of water pressure. Diagnosis Obstructive sleep apnea. Misc. Devices Misc Supply requested: edin test strips and lancets Diagnosis: 250.00 Misc. Devices MISC Supply requested: C-pap supplies Diagnosis: 786.03 Length of need lifetime Eluxadoline (Viberzi) 75 MG Tablet Take 1 Tab by mouth two times a day. No current facility-administered medications for this visit. Allergies Allergen Reactions Hydromorphone Hcl Other reaction(s): Itching Penicillins Dizziness Shots only Social History Tobacco Use Smoking status: Former Smoker Packs/day: 1.00 Years: 6.00 Pack years: 6.00 Types: Cigarettes Smokeless tobacco: Never Used Tobacco comment: quit 35 years ago Substance Use Topics Alcohol use: No Family History Problem Relation Age of Onset Cancer Father Melonoma Diabetes Father Melanoma Father There were no vitals taken for this visit. Physical Exam Neurological: He is alert. Psychiatric: Mood and affect normal. LAB RESULTS: Results for orders placed or performed in visit on 08/21/19 (from the past 336 hour(s)) HEMOGRAM Result Value Ref Range WBC 6.8 3.2 - 11.0 10*9/L RBC 5.08 4.14 - 5.76 10*12/L HGB 15.2 12.9 - 16.9 g/dL HCT 46.0 38.4 - 49.7 % MCV 90.6 81.4 - 99.0 fL MCH 29.9 26.7 - 33.1 pg MCHC 33.0 31.6 - 35.5 g/dL RDW 13.3 11.3 - 14.6 % PLT 222 130 - 375 10*9/L LIPID PANEL Result Value Ref Range Cholesterol 137 114 - 200 mg/dL HDL Cholesterol 44 40 - 60 mg/dL Triglycerides 58 10 - 200 mg/dL LDL Cholesterol, Calculated 81 mg/dL Narrative Triglyceride If patient is non-fasting, the result of the triglyceride is invalid. Triglyceride Reference Ranges Normal: 10-200 mg/dL Borderline High: 150-200 mg/dL High: 201-499 mg/dL Very High: =500 mg/dL Total Cholesterol Reference Ranges Desirable: <200 mg/dL Borderline High: 200-239 mg/dL High: >239 mg/dL Calculated LDL Cholesterol Reference Ranges Optimal: <100 mg/dL Near Optimal: 100-129 mg/dL Borderline High: 130-159 mg/dL High: 160-189 mg/dL Very High: >189 mg/dL HEMOGLOBIN A1C Result Value Ref Range Hemoglobin A1c 6.5 (H) 4.0 - 5.6 % Estimated Average Glucose 140 mg/dL Narrative HGA1C Reference Ranges >= 6.5 Diabetes* 5.7-6.4 Impaired glucose tolerance <5.7 Normal *In the absence of unequivocal hyperglycemia, results should be confirmed by repeat testing for the diagnosis of diabetes. [place] [employer] 2018 MICROALBUMIN, RANDOM URINE Result Value Ref Range Urine Microalbumin/Creatinine Ratio 7 0 - 29 Urine Creatinine, Random 212 mg/dL Urine Microalbumin 1.5 mg/dL SARS-COV-2 (COVID-19) IGG ANTIBODY Result Value Ref Range SARS-CoV-2 (COVID-19) IgG Antibody Negative Negative COMPREHENSIVE METABOLIC PANEL Result Value Ref Range Sodium 142 134 - 143 mEq/L Potassium 4.4 3.4 - 5.1 mEq/L Chloride 108 99 - 110 mEq/L Carbon Dioxide 25 19 - 29 mEq/L Anion Gap 9.0 3.0 - 15.0 mEq/L Blood Urea Nitrogen 22 5 - 24 mg/dL Creatinine 1.13 0.70 - 1.20 mg/dL Glomerular Filtration Rate >60 >60 mL/min/1.73 m*2 Calcium 9.1 8.4 - 10.5 mg/dL Glucose 133 (H) 70 - 99 mg/dL Protein, Total 7.1 6.0 - 8.0 g/dL Albumin 3.9 3.5 - 5.0 g/dL Alkaline Phosphatase 78 40 - 150 IU/L Aspartate Aminotransferase 25 10 - 40 IU/L Alanine Aminotransferase 27 6 - 40 IU/L Bilirubin, Total 0.6 0.2 - 1.2 mg/dL Narrative Current ADA criteria for Glucose: Normal: 70-99 mg/dL Impaired Fasting Glucose: 100-125 mg/dL Diabetes Mellitus: at or above 126 mg/dL The diagnosis of diabetes must be confirmed on a subsequent day by measuring Fasting Plasma Glucose,2-hr PG or random plasma glucose (if symptoms are present). ASSESSMENT/PLAN: 1. Controlled type 2 diabetes: A1c remains stable, at this time I recommend that he continue to work on good diet exercise strategies and will check things again before he heads down [facility] for the winter. 2. Dyslipidemia: Lipid panel remains satisfactory, will continue with the pravastatin and monitor. 3. History of adenomatous colon polyp: We will again refer him for repeat colonoscopy. 4. Massive bowel resection syndrome, chronic opiate therapy: The patient is not having any benefit from the oxycodone at this point in terms of managing his diarrhea. He is going to stop the oxycodone and start on the Viberzi in hopes of improving his diarrhea symptoms. He is aware of potential withdrawal symptoms and has had some of that with the taper already. He tells me he would rather have afew days of feeling unwell with withdrawal symptoms rather than deal with the ongoing diarrhea. I asked him to contact me if he has any difficulties with that. - Follow up: We will follow-up in January before he heads [facility] for the winter, return sooner if needed. 1. Total time spent 12 minutes. 50% or more in counseling or coordination of care. 2. The mode of transmission of the telemedicine service: telephone Goyo Sunshine APRN, PRODUCTION OFFICER [address] [address] documented in this encounter Plan of Treatment Date Type Specialty Care Team Description 10/26/2019 Appointment Dermatology Rima Tsang DO [address] [place] [address] [phone] 01/21/2020 Appointment Laboratory Lab, [place] MD Zane [address] [place] [address] 01/21/2020 Appointment Internal Medicine Goyo Sunshine, JERRY, PRODUCTION OFFICER [address] [place] [address] Name Type Priority Associated Diagnoses Order S chedule HEMOGRAM Lab Routine Controlled type 2 diabetes E xpected: 12/29/2019 mellitus without (Approximat e), Expires: complication, without 2020 long-term current use of insulin (HCC) BASIC METABOLIC PANEL Lab Routine Controlled type 2 d iabetes Expected: 12/29/2019 mellitus without (Approximat e), Expires: complication, without 2020 long-term current use of insulin (HCC) HEMOGLOBIN A1C Lab Routine Controlled type 2 diabetes Expected: 12/29/2019 mellitus without (Approximat e), Expires: complication, without 2020 long-term current use of insulin (HCC) Name Type Priority Associated Diagnoses Order S chedule SCHEDULE ENDOSCOPY REFERRAL Routine H/O adenomatous polyp of Ordered: 08/27/2019 [facility] colon documented as of this encounter Implants Implanted Type Area Braze Operator Device Shelf Model / Identifier Expiration Date Ser ial / Lot Shell Acet [place] 52mm [id number] - [id number] Right: RON 08/21/2027 / Implanted: Qty: 1 on 11/16/2017 by Leandro Fierro MD at [facility] NA / [id number] Eliminator [place] 124 - [id number] Right: RON 07/22/2027 / Implanted: Qty: 1 on 11/16/2017 by Leandro Fierro MD at [facility] / [id number] Liner Acet 28mm X 52mm N Eutral Poly Altrx 122 - [id number] Right: [facility] 05/21/2021 122 / Implanted: Qty: 1 on 11/16/2017 by Leandro Fierro MD at [facility] / [id number] Stem Femoral Corail2 Non Collared Ho Size 13 [id number] - [id number] Right: [facility] 07/21/2022 [id number] / Implanted: Qty: 1 on 11/16/2017 by Leandro Fierro MD at [facility] / [id number] Head Fem Articul Dimitry 01/1428 Mm +8.5 136 - [id number] Right: [facility] 07/21/2022 136 / Implanted: Qty: 1 on 11/16/2017 by Leandro Fierro MD at [facility] / [id number] Head Femoral Dpo Articul/Dimitry Brown 28mm +5 Neck - [id number] Left: Hip [facility] 10/21/2022 136 / Implanted: Qty: 1 on 01/31/2018 by Leandro Fierro MD at [facility]/A / [id number] Shell Acet [place] 54mm - [id number] Left: Hip [facility] 10/22/2027 / Implanted: Qty: 1 on 01/31/2018 by Leandro Fierro MD at [facility]/A / [id number] Eliminator [place] - [id number] Left: Hip [facility] 10/22/2027 / Implanted: Qty: 1 on 01/31/2018 by Leandro Fierro MD at [facility]/A / [id number] Liner Acet [place] Altrx Ne Utral 28 Mm Id X 54 Mm Od - [id number] Left: Hip JNJ 09/20/2020 [id number] / Implanted: Qty: 1 on 01/31/2018 by Leandro Fierro MD at [facility] N/A / [id number] Stem Femoral Corail2 Non Collared Ho Size 12 [id number] - [id number] Left: Hip JNJ 07/21/2022 [id number] / Implanted: Qty: 1 on 01/31/2018 by Leandro Fierro MD at [facility] N/A / [id number] documented as of this encounter Visit Diagnoses Diagnosis Controlled type 2 diabetes mellitus with out complication, without long-term current use of insulin (HCC) Dyslipidemia Other and unspecified hyperlipidemia H/O adenomatous polyp of colon Personal history of colonic polyps Massive bowel resection syndrome Other and unspecified postsurgical nonab sorption COAT Treatment Agreement signed 9 documented in this encounter Insurance Payer Benefit Plan / Subscriber ID Effective Phone Address T ype Group Dates [place] [id number] 2018-Pres 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
--- NOTE | 2019-09-25 14:13 | OR ---
DATE OF PROCEDURE: 09/21/2019 SURGEON: Dariusz Sheikh MD PREOPERATIVE DIAGNOSIS: History of adenomatous polyp, low rectum, status post low-anterior resection. POSTOPERATIVE DIAGNOSES: Possible polypoid tissue at, 1. Colorectal anastomosis. 2. Just above colorectal anastomosis. OPERATIVE PROCEDURES: Flexible colonoscopy with, 1. Biopsies of possible polypoid tissue, colorectal anastomosis. 2. Biopsies of possible polypoid area, superior to colorectal anastomosis. ANESTHESIA: IV sedation. INDICATION FOR PROCEDURE: This is a 68-year-old male presenting for followup colonoscopy. He is status post a low-anterior resection for a large polypoid adenomatous lesion in the rectum. He has been followed postoperatively with some fairly frequent colonoscopies with no known recurrence of the adenomatous polyp there or elsewhere in the interim. The plan is to proceed with a flexible colonoscopy with biopsies and/or polypectomy as indicated. Potential risks including bleeding and perforation were discussed, and the patient wishes to proceed. DETAILS OF PROCEDURE: The patient was taken to the operating room and placed in a left lateral decubitus position. IV sedation was administered, after which the initial digital rectal exam was performed and was unremarkable. Colonoscope was then passed into the rectum. Because of the confines, retroflexion was not undertaken. At the colorectal anastomosis, there was more or less of a [id number] somewhat thickening and reddening of the mucosa. This was a very well-defined mass. The scope could easily be passed through the anastomosis. Just above that, there was a slightly raised area that may likewise also be normal mucosa, but appeared to possibly be adenomatous lesion. The scope was then passed to the level of the cecum. The prep was quite good with only small amount of liquid stool being present. Scope was then withdrawn into the area around the colorectal anastomosis. Multiple biopsies over the colorectal anastomosis were then obtained and then some initial biopsies in the raised area above the anastomosis were also obtained and sent as a separate set of specimens as well. Minimal bleeding was noted, and the procedure then concluded. The plan will be to await the pathology report. If biopsies of the colorectal anastomosis shows adenomatous changes, one might attempt to ablate those areas rather than a secondary resection, which at this point will require a permanent colostomy. If the area above the colorectal anastomosis turns out to be adenomatous, we will follow up with additional colonoscopy and remove that by means of snare technique. We will call the patient when we have those available. If all these biopsies come back being non-adenomatous, then I think we can go two years with the next colonoscopy. Dariusz Sheikh MD /[id number]
== END 2019-09-21 11:54 | disposition home or self-care (01) ==
LOC: JP.SDS 07:50
PROVIDERS: ATTEND Surgery
DX: D12.8 Benign neoplasm of rectum (principal); D12.6 Benign neoplasm of colon, unspecified; E11.9 Type 2 diabetes mellitus without complications; Z86.010 Personal history of colon polyps; Z98.890 Other specified postprocedural states; Z87.891 Personal history of nicotine dependence; Z88.0 Allergy status to penicillin; Z88.5 Allergy status to narcotic agent
CPT/HCPCS: 45380; J2250; J2704; J3010; J7121; 88305

== ENCOUNTER 2019-10-04 05:33 | Day surgery (SDC) | payer BC ==
[2019-10-04] MEDS ORDERED: Dextrose 5%-Lactated Ringers 1,000 ML IV SCH (06:00)
[2019-10-04] MEDS ORDERED: cefOXitin 2 GM in Sodium Chloride 0.9% 50 ML IV ONE (06:53)
[2019-10-04] MEDS ORDERED: fentaNYL 100 MCG/2 ML SDV ONE (06:56)
[2019-10-04] MEDS ORDERED: Propofol 200 MG/20 ML SDV ONE (06:56)
[2019-10-04] MEDS ORDERED: Meropenem 500 MG in Sodium Chloride 0.9% 50 ML IV ONE (07:15)
[2019-10-04 08:49] VITALS: BP 120/68; PULSE 51
--- NOTE | 2019-10-17 13:42 | OR ---
DATE OF PROCEDURE: 10/04/2019 SURGEON: Dariusz Sheikh MD PREOPERATIVE DIAGNOSIS: Recurrent polypoid tissue above and over colorectal anastomosis. POSTOPERATIVE DIAGNOSIS: Recurrent polypoid tissue above and over colorectal anastomosis. OPERATIVE PROCEDURES: Flexible colonoscopy with: 1. Snare removal of polypoid tissue just superior to colorectal anastomosis (96973). 2. Biopsies of multifocal polypoid tissue overlying the colorectal anastomosis (86989). 3. Electrodesiccation of base of polypoid area at colorectal anastomosis (17447). ANESTHESIA: IV sedation. INDICATIONS FOR PROCEDURE: A 68-year-old male presenting with area of recurrent polypoid tissue. There was likely the polyp just superior to the colorectal anastomosis and then horseshoe area of polypoid tissue recurring over the colorectal anastomosis. Recent biopsies of this are negative. The most recent procedure was a flexible sigmoidoscopy, so we will plan a full colonoscopy at this time for general polyp and colonoscopy prep would be required to do electrodesiccation and use the electric component of the snare technique. Plan is to remove as much polypoid tissue as possible and then do an electrodesiccation of the base of the polypoid tissue, particularly at the area of the colorectal anastomosis with subsequent early followup examination. Potential risks of the procedure including bleeding and perforation, continued persistence of the polypoid tissue over time were reviewed, and the patient wishes to proceed. DETAILS OF PROCEDURE: The patient was taken to the operating room, placed in a left lateral decubitus position. IV sedation was administered, after which the initial digital rectal exam was performed and was unremarkable. Colonoscope was then passed into the rectum. The above findings at and around the colorectal anastomosis were reconfirmed. Scope was then passed to the level of the cecum with no additional polypoid tissue identified. The patient did have a few scattered diverticula in what had been the proximal-most sigmoid colon previously. At this point, the polyp that was located just superior to the colorectal anastomosis was encircled at its base with the snare and divided with the use of electrocautery and that specimen delivered from the field. At this point, the remainder of the polypoid tissue over the anastomosis itself did not appear to be amenable to snaring, and given this, multiple biopsies were obtained, removing all of the grossly evident polypoid tissue. These were sent as a separate specimen and then the base of the anastomosis was then extensively electrodesiccated using the tip of the cautery snare device until all the base appeared to be well desiccated. At that point, no further problems were noted. The patient was taken to the recovery room in satisfactory condition. Dariusz Sheikh MD /[id number]
== END 2019-10-04 09:12 | disposition home or self-care (01) ==
LOC: JP.SDS 05:33
PROVIDERS: ATTEND Surgery
DX: D12.8 Benign neoplasm of rectum (principal); K57.30 Diverticulosis of large intestine without perforation or abscess without bleeding; Z98.0 Intestinal bypass and anastomosis status; Z98.890 Other specified postprocedural states
CPT/HCPCS: 45380; 45385; 45388; 88305; 88342; J0694; J2704; J3010; J7050; J7121

== ENCOUNTER 2019-11-06 06:51 | Day surgery (SDC) | payer BC, MEDICARE ==
[2019-11-06] MEDS ORDERED: Dextrose 5%-Lactated Ringers 1,000 ML IV SCH (07:15)
[2019-11-06] MEDS ORDERED: Midazolam 1 MG/ML 2 ML SDV ONE (07:40)
[2019-11-06] MEDS ORDERED: fentaNYL 100 MCG/2 ML SDV ONE (07:40)
[2019-11-06] MEDS ORDERED: Propofol 200 MG/20 ML SDV ONE (07:40)
[2019-11-06 09:46] VITALS: BP 141/85; PULSE 56
--- NOTE | 2019-11-11 12:52 | OR ---
DATE OF PROCEDURE: 11/06/2019 SURGEON: Dariusz Sheikh MD PREOPERATIVE DIAGNOSIS: Recurrent polypoid tissue with previous colorectal anastomosis. POSTOPERATIVE DIAGNOSIS: Recurrent polypoid tissue with previous colorectal anastomosis. OPERATIVE PROCEDURE: Flexible colonoscopy with ablation of polypoid tissue over the previous colorectal anastomosis ([id number]). ANESTHESIA: IV sedation. INDICATION FOR PROCEDURE: The patient recently presented with some recurrent polypoid tissue over the area of the previous colorectal anastomosis. This was a very low anastomosis and the area not amenable to resection or direct endoscopic removal. The plan at this point is to proceed with a flexible colonoscopy and ablation of the tissue and/or excision of it as it appears feasible. Potential risks including bleeding and perforation, the likelihood of needing additional sessions of treatment were gone over and the patient wishes to proceed. DESCRIPTION OF PROCEDURE: The patient was taken to the operating room, placed in a left lateral decubitus position. IV sedation was administered, after which the initial digital rectal exam was performed and was unremarkable. The colonoscope was then passed up to the level of the mid transverse colon, there was no pathology noted other than for what appeared to be some persistent polypoid tissue over the colorectal anastomosis. This area was then examined once again and this appeared to be directly amenable to endoscopic removal per se. This was then ablated using electrocautery using the tip of a cautery snare. The ablation occurred then such that the entire area of concern was black and then appeared to be ablated well. The procedure was then concluded. The patient was taken to the recovery room in satisfactory condition. Further documentation of the anastomosis before and after the ablation was included in the documentation. Plan will be to proceed with a followup colonoscopy in the range of December 05 to . Dariusz Sheikh MD /[id number]
== END 2019-11-06 10:00 | disposition home or self-care (01) ==
LOC: JP.SDS 06:51
PROVIDERS: ATTEND Surgery
DX: K63.5 Polyp of colon (principal); E11.9 Type 2 diabetes mellitus without complications; Z88.0 Allergy status to penicillin; Z88.8 Allergy status to other drugs, medicaments and biological substances; Z86.010 Personal history of colon polyps; Z88.5 Allergy status to narcotic agent; Z98.0 Intestinal bypass and anastomosis status
CPT/HCPCS: 45385; J2250; J2704; J3010; J7121

== ENCOUNTER 2019-12-11 09:05 | Day surgery (SDC) | payer BC, MEDICARE ==
[2019-12-11] MEDS ORDERED: Propofol 200 MG/20 ML SDV ONE (09:27)
[2019-12-11] MEDS ORDERED: Midazolam 1 MG/ML 2 ML SDV ONE (09:27)
[2019-12-11] MEDS ORDERED: fentaNYL 100 MCG/2 ML SDV ONE (09:27)
[2019-12-11] MEDS ORDERED: Dextrose 5%-Lactated Ringers 1,000 ML IV SCH (09:30)
[2019-12-11] MEDS ORDERED: Meropenem 500 MG in Sodium Chloride 0.9% 50 ML IV ONE (09:30)
[2019-12-11] MEDS ORDERED: cefOXitin 2 GM in Sodium Chloride 0.9% 50 ML IV ONE (10:15)
[2019-12-11 11:22] VITALS: PULSE 47
[2019-12-11 11:46] VITALS: BP 148/79
--- NOTE | 2019-12-18 09:20 | OR ---
DATE OF PROCEDURE: 12/11/2019 SURGEON: Dariusz Sheikh MD PREOPERATIVE DIAGNOSIS: Possible persistent adenomatous polypoid tissue at colorectal anastomosis. POSTOPERATIVE DIAGNOSIS: Possible persistent adenomatous polypoid tissue at colorectal anastomosis. OPERATIVE PROCEDURE: Flexible sigmoidoscopy with: a. Biopsies of tissue overlying colorectal anastomosis (56365). b. Ablation of tissue overlying the colorectal anastomosis (13189). ANESTHESIA: IV sedation. INDICATIONS FOR PROCEDURE: A 69-year-old presenting with some with recurrent adenomatous tissue over a quite low colorectal anastomosis. The patient has undergoing previous biopsies and ablation and is to undergo a followup examination with biopsies and ablation as indicated. Potential risks including bleeding, infection, or local recurrence of the problem were all reviewed, and the patient wishes to proceed. DETAILS OF PROCEDURE: The patient was taken to the operating room and placed in a left lateral decubitus position. IV sedation was administered after which the area of the colorectal anastomosis was examined. This had some fleshy material within it. Multiple biopsies were obtained to see whether or not this was simply healing type granulation tissue versus adenomatous tissue. Upon completion of the biopsies, the entire area was cauterized, obliterating the mucosal surface on the areas of potential involvement. The procedure was then concluded. The patient was taken to the recovery room in satisfactory condition. We will await the current biopsies and contact the patient regarding the next appropriate examination. Dariusz Sheikh MD /[id number]
== END 2019-12-11 12:00 | disposition home or self-care (01) ==
LOC: JP.SDS 09:05
PROVIDERS: ATTEND Surgery
DX: D12.8 Benign neoplasm of rectum (principal); E11.9 Type 2 diabetes mellitus without complications; Z88.8 Allergy status to other drugs, medicaments and biological substances
CPT/HCPCS: 45331; 45346; 88305; J0694; J2250; J2704; J3010

== ENCOUNTER 2020-01-22 07:19 | Day surgery (SDC) | payer BC, MEDICARE ==
[2020-01-22] MEDS ORDERED: Propofol 200 MG/20 ML SDV ONE (07:28)
[2020-01-22] MEDS ORDERED: fentaNYL 100 MCG/2 ML SDV ONE (07:28)
[2020-01-22] MEDS ORDERED: Midazolam 1 MG/ML 2 ML SDV ONE (07:29)
[2020-01-22] MEDS ORDERED: Dextrose 5%-Lactated Ringers 1,000 ML IV SCH (08:00)
[2020-01-22] MEDS ORDERED: cefOXitin 2 GM in Sodium Chloride 0.9% 50 ML IV ONE (08:30)
[2020-01-22 12:12] VITALS: BP 119/74; PULSE 68
--- NOTE | 2020-02-03 12:11 | OR ---
DATE OF PROCEDURE: 01/22/2020 SURGEON: Dariusz Sheikh MD PREOPERATIVE DIAGNOSIS: Possible remanence of focal adenoma at the colorectal anastomosis. OPERATIVE PROCEDURE: Flexible sigmoidoscopy with ablation of areas of possible focal adenoma at the colorectal anastomosis (81572). ANESTHESIA: IV sedation. INDICATIONS FOR PROCEDURE: The patient presents for followup flexible sigmoidoscopy and possible ablation of possible persistent or recurrent adenoma-type tissue at the colorectal anastomosis. Potential risks including bleeding and perforation, possibility of the problem persisting or recurring were all reviewed and the patient wishes to proceed. DETAILS OF PROCEDURE: The patient was taken to the operating room and placed in a left lateral decubitus position. IV sedation was administered after which the initial digital rectal exam was performed and was unremarkable. The flexible sigmoidoscopy was then placed, and the colorectal anastomosis was examined. In the left lateral aspect, there was some fleshy-type material consistent with either some healing granulation tissue or persistent adenomatous tissue. This was then extensively debrided with electrocautery and indicated fairly good depth at the point of ablation and the procedure then concluded. The patient was taken to the recovery room in satisfactory condition. [place], and at that point, we will plan to proceed with a followup flexible sigmoidoscopy. Dariusz Sheikh MD /[id number]
== END 2020-01-22 12:25 | disposition home or self-care (01) ==
LOC: JP.SDS 07:19
PROVIDERS: ATTEND Surgery
DX: Z09 Encounter for follow-up examination after completed treatment for conditions other than malignant neoplasm (principal); K63.89 Other specified diseases of intestine; E11.9 Type 2 diabetes mellitus without complications; Z90.49 Acquired absence of other specified parts of digestive tract
CPT/HCPCS: J0694; J2250; J2704; J3010; J7121

== ENCOUNTER 2020-06-24 05:47 | Day surgery (SDC) | payer MEDICARE, BC ==
[~2020-06-24 05:47] MED LIST changes: +Dextrose 5%-Lactated Ringers 1,000 ML IV SCH; -Midazolam 1 MG/ML 2 ML SDV ONE; -Propofol 200 MG/20 ML SDV ONE; -fentaNYL 100 MCG/2 ML SDV ONE
[2020-06-24] MEDS ORDERED: Propofol 200 MG/20 ML SDV ONE ×2 (07:14→08:15)
[2020-06-24] MEDS ORDERED: fentaNYL 100 MCG/2 ML SDV ONE (07:14)
[2020-06-24] MEDS ORDERED: Midazolam 1 MG/ML 2 ML SDV ONE (07:14)
[2020-06-24 09:37] VITALS: BP 157/66; PULSE 51
--- NOTE | 2020-07-15 13:08 | OR ---
DATE OF PROCEDURE: 06/24/2020 SURGEON: Dariusz Sheikh MD PREOPERATIVE DIAGNOSIS: Probable persistent polypoid tissue at colorectal anastomosis. POSTOPERATIVE DIAGNOSES: 1. Probable persistent polypoid tissue at colorectal anastomosis. 2. Limited diverticulosis above colorectal anastomosis. OPERATIVE PROCEDURE: Flexible colonoscopy with: 1. Snare removal of portion of polypoid tissue at colorectal anastomosis (76250). 2. Electrodesiccation of polypoid tissue at colorectal anastomosis (06159). ANESTHESIA: IV sedation. INDICATIONS FOR PROCEDURE: A 69-year-old male presenting with an area of tubular adenoma formation at the previous colorectal anastomosis. He has already undergone previous ablative procedures in that area. Plan is to proceed with full colonoscopy at this point and then addressing any obvious areas of recurrence in the polypoid tissue at the colorectal anastomosis. Potential risks including bleeding and perforation were discussed, and the patient wishes to proceed. DETAILS OF PROCEDURE: The patient was taken to the operating room, placed in a left lateral decubitus position. IV sedation was administered, after which the initial digital rectal examination was performed and was unremarkable. Colonoscope was passed into the rectum and moved up to the level of the colorectal anastomosis. At that area, there was some tissue that appeared to be consistent with polypoid tissue on the edge of the anastomosis and overlying it. There was no stricturing and the scope was easily passed through that area and the patient was noted to have a few diverticula of the anastomosis. Otherwise, the remainder of the colonoscopic examination was unremarkable. At this point, a snare was placed around the base of what appeared to be a polypoid tissue just distal to colorectal anastomosis. This was excised and sent for histologic evaluation. Bleeding base of this area was then extensively electrodesiccated and at that point, the procedure was then concluded. There were no evident complications. The patient was taken to the recovery room in satisfactory condition. The plan will be to await the pathology report. Assuming if there is some persistent adenomatous tissue in this area, he should undergo a repeat examination in roughly 2 months. Dariusz Sheikh MD /[id number]
== END 2020-06-24 09:53 | disposition home or self-care (01) ==
LOC: JP.SDS 05:47
PROVIDERS: ATTEND Surgery
DX: D12.7 Benign neoplasm of rectosigmoid junction (principal); K57.30 Diverticulosis of large intestine without perforation or abscess without bleeding; E78.5 Hyperlipidemia, unspecified; E11.9 Type 2 diabetes mellitus without complications; Z88.0 Allergy status to penicillin; Z88.8 Allergy status to other drugs, medicaments and biological substances; Z86.010 Personal history of colon polyps; Z98.890 Other specified postprocedural states
CPT/HCPCS: 45385; 45388; 88305; J2250; J2704; J3010; J7121

== ENCOUNTER 2020-08-12 07:02 | Day surgery (SDC) | payer MEDICARE, BC ==
[2020-08-12] MEDS ORDERED: Midazolam 1 MG/ML 2 ML SDV ONE (07:09)
[2020-08-12] MEDS ORDERED: fentaNYL 100 MCG/2 ML SDV ONE (07:09)
[2020-08-12] MEDS ORDERED: Propofol 200 MG/20 ML SDV ONE ×2 (07:09→09:46)
[2020-08-12] MEDS ORDERED: Dextrose 5%-Lactated Ringers 1,000 ML IV SCH ×2 (07:58→09:00)
[2020-08-12 11:44] VITALS: BP 156/78; PULSE 50
--- NOTE | 2020-08-13 17:13 | OR ---
DATE OF PROCEDURE: 08/12/2020 SURGEON: Dariusz Sheikh MD PREOPERATIVE DIAGNOSIS: Persistent polypoid tissue with colorectal anastomosis. POSTOPERATIVE DIAGNOSIS: Persistent polypoid tissue with colorectal anastomosis. PROCEDURES PERFORMED: Flexible sigmoidoscopy with: 1. Snare removal of polypoid tissue at colorectal anastomosis (69702). 2. Cauterization of base of polypoid tissue at colorectal anastomosis (42238). ANESTHESIA: IV sedation. INDICATION FOR PROCEDURE: The patient has had some problems with persistent polypoid tissue occurring at the colorectal anastomosis. The plan is to proceed with a flexible sigmoidoscopy with removal of much of the tissue as possible and manipulation of the remaining base. That this will likely need to be continued over time to some extent was reviewed once again with the patient otherwise. Potential risks including bleeding and perforation were discussed, and he wishes to proceed. DETAILS OF PROCEDURE: The patient was taken to the operating room and placed in a left lateral decubitus position. IV sedation was administered after which the flexible sigmoidoscope was passed into the rectum and up to the colorectal anastomosis. There was some fleshy tissue consistent with polypoid tissue at that level. This was removed in piecemeal with a snare, and then the base was then extensively cauterized until no visible polypoid tissue was remaining. The procedure was then concluded. The patient tolerated the procedure well. Plan will be to schedule the patient for a followup flexible sigmoidoscopy and probable similar procedure in early October. Dariusz Sheikh MD /[id number]
== END 2020-08-12 11:30 | disposition home or self-care (01) ==
LOC: JP.SDS 07:02
PROVIDERS: ATTEND Surgery
DX: D12.6 Benign neoplasm of colon, unspecified (principal); E11.9 Type 2 diabetes mellitus without complications; Z98.0 Intestinal bypass and anastomosis status; Z80.0 Family history of malignant neoplasm of digestive organs
CPT/HCPCS: 45388; J2704; J3010; J7121; 88305; J2250

== ENCOUNTER → 2020-10-23 | Day surgery (SDC) | payer BC, MEDICARE ==
[~2020-10-23] MED LIST changes: +Midazolam 1 MG/ML 2 ML SDV ONE; +Propofol 200 MG/20 ML SDV ONE; +cefOXitin 2 GM in Sodium Chloride 0.9% 50 ML IV ONE; +fentaNYL 100 MCG/2 ML SDV ONE
[2020-10-23 09:37] VITALS: BP 146/86
[2020-10-23 09:53] VITALS: PULSE 47
--- NOTE | 2020-11-06 10:22 | OR ---
DATE OF PROCEDURE: 10/23/2020 SURGEON: Dariusz Sheikh MD PREOPERATIVE DIAGNOSIS: Probable recurrent adenomatous tissue (granulation tissue) at the colorectal anastomosis. PROCEDURE: Flexible sigmoidoscopy with: 1. Biopsy of polypoid tissue at colorectal anastomosis (84751). 2. Ablation of polypoid tissue at colorectal anastomosis (30638). ANESTHESIA: IV sedation. INDICATION FOR PROCEDURE: This is a 69-year-old male presenting with some ongoing problems with recurrent polypoid tissue at and around a low colorectal anastomosis that has been ablated several times. Overall, the amount of tissues seemed to be dissipating and we have not seen any biopsies with high-grade dysplasia. Plan is to repeat endoscopy with biopsies as indicated and ablation of any tumor that could be potentially polypoid tissue. Potential risks including bleeding and perforation were discussed, and the patient wishes to proceed. DESCRIPTION OF PROCEDURE: The patient was taken to the operating room, placed in a left lateral decubitus position. IV sedation was administered, after which the digital rectal exam was performed and was unremarkable. A flexible sigmoidoscope was then passed to the rectum. Roughly a quarter circumference, there was some roughened, slightly raised polypoid tissue versus granulation tissue on the colorectal anastomosis. Multiple biopsies were obtained from this area and sent for histologic evaluation. Following this, extensive ablation with electrocautery was accomplished destroying all the evident type tissue. Some bleeding was present, which was additionally controlled with electrocautery. At that point, the procedure was concluded, and the patient was taken to the recovery room in satisfactory condition. Dariusz Sheikh MD /[id number]
== END ==
LOC: JP.SDS 07:20
PROVIDERS: ATTEND Surgery
DX: K63.3 Ulcer of intestine (principal); D12.7 Benign neoplasm of rectosigmoid junction; Z98.0 Intestinal bypass and anastomosis status
CPT/HCPCS: 45331; 45346; 88305; J0694; J2704; J3010; J7121; J2250

== ENCOUNTER 2020-10-26 05:06 | Emergency (ER) | payer BC, MEDICARE ==
[2020-10-26] MEDS ORDERED: Tranexamic Acid 1,000 MG in Sodium Chloride 0.9% 50 ML IV ONE ×5 (06:19→10:00)
[2020-10-26] MEDS ORDERED: Coagulation Factor VIIa Recombinant (per MCG) 2 MG Vial IVPUSH ONE (06:19)
--- NOTE | 2020-10-26 06:19 | EDM.PDOC ---
<Ramana Joshi - Last Filed: 10/26/20 06:39> ED HPI GENERAL MEDICAL PROBLEM - General Chief Complaint: Gastrointestinal Problem Stated Complaint: BLEEDING POST OP Time Seen by Provider: 10/26/20 05:30 Source of Information: Reports: Patient, Family History Limitations: Reports: No Limitations - History of Present Illness INITIAL COMMENTS - FREE TEXT/NARRATIVE: 69-year-old male with rectal bleeding after having a procedure 3 days ago for cauterization of an anastomotic site near the anal opening. He has been bleeding for the past 24 to 48 hours, seems to be slowing down slightly but still is having clots in a about a half a cup to a cup of blood every hour. No pain, no fever. Duration: Day(s): (2 days of symptoms) Associated Symptoms: Reports: No Other Symptoms denies pain Pain Score (Numeric/FACES): 0 - Related Data Allergies Allergy/AdvReac Type Severity Reaction Status Date / Time eluxadoline [From Viberzi] Allergy Abdominal Verified 10/26/20 05:27 Pain hydromorphone HCl Allergy Itching Verified 10/26/20 05:27 [From Dilaudid] meropenem AdvReac Nausea and Verified 10/26/20 05:27 Vomiting Penicillins AdvReac Dizziness Verified 10/26/20 05:27 Home Meds: Home Meds Aspirin [Ecotrin EC] 81 mg PO BEDTIME 05/02/15 [History] Celecoxib [CeleBREX] 200 mg PO DAILY 05/02/15 [History] Pravastatin [Pravachol] 10 mg PO BEDTIME 05/02/15 [History] Acetaminophen [Tylenol Extra Strength] 1,000 mg PO Q6H PRN 09/19/19 [History] oxyCODONE HCl [Oxycodone HCl] 5 - 10 mg PO QID PRN 11/02/19 [History] Past Medical History HEENT History: Reports: Impaired Vision Other HEENT History: wears glasses Cardiovascular History: Reports: High Cholesterol Respiratory History: Reports: Sleep Apnea Other Respiratory History: positive mantoux pleurisy Gastrointestinal History: Reports: Chronic Diarrhea, Colon Polyp, Diverticulosis, Hemorrhoids, Other (See Below) Other Gastrointestinal History: anterior rectal resection syndrome Genitourinary History: Reports: None Musculoskeletal History: Reports: Arthritis, Other (See Below) Other Musculoskeletal History: s/p LTKA 01/03/19 Neurological History: Reports: None Psychiatric History: Reports: Addiction Endocrine/Metabolic History: Reports: Diabetes, Type II Hematologic History: Reports: Blood Transfusion(s) Immunologic History: Reports: None Oncologic (Cancer) History: Reports: Basal Cell Carcinoma, Other (See Below) Other Oncologic History: nasal, adenoma Dermatologic History: Reports: Other (See Below) Other Dermatologic History: poison wendy - Infectious Disease History Infectious Disease History: Reports: Chicken Pox, Hepatitis C, Measles, Mumps, Rubella Other Infectious Disease History: positive reading for hep c - Past Surgical History Head Surgeries/Procedures: Reports: None HEENT Surgical History: Reports: Oral Surgery Other HEENT Surgeries/Procedures: skin graft nose and upper lip. mucocile removed. wisdom teeth extraction Cardiovascular Surgical History: Reports: None Respiratory Surgical History: Reports: None GI Surgical History: Reports: Appendectomy, Colonoscopy, Hernia, Abdominal, Hernia, Inguinal, Small Bowel Other GI Surgeries/Procedures: 2 bowel resection AND FISTULA REPAIR, flexible sigmoidoscopy, hemorrhoidectomy Male Surgical History: Reports: Vasectomy Endocrine Surgical History: Reports: None Neurological Surgical History: Reports: None Musculoskeletal Surgical History: Reports: Arthroscopic Knee, Hip Replacement, Knee Replacement Other Musculoskeletal Surgeries/Procedures:: rt. and lt. hip replacements. left total knee [id number]/13/19. right partial knee replacement Oncologic Surgical History: Reports: Other (See Below) Other Oncologic Surgeries/Procedures: skin biopsies Dermatological Surgical History: Reports: None Social & Family History - Family History Family Medical History: No Pertinent Family History HEENT: Reports: Cataract, Impaired Vision Cardiac: Reports: Arrhythmia Respiratory: Reports: None GI: Reports: Diverticulitis : Reports: None OBGYN: Reports: None Musculoskeletal: Reports: Arthritis Neurological: Reports: None Psychiatric: Reports: None Endocrine/Metabolic: Reports: None Hematologic: Reports: None Immunologic: Reports: None Dermatologic: Reports: None Oncologic: Reports: Bladder, Other (See Below) Other Oncologic Family History: melanoma - Tobacco Use Tobacco Use Status *Q: Never Tobacco User - Caffeine Use Caffeine Use: Reports: Coffee Other Caffeine Use: 2 c. daily Caffeine Use Comment: 2 cups daily - Recreational Drug Use Recreational Drug Use: No ED ROS GENERAL - Review of Systems Review Of Systems: See Below Constitutional: Denies: Fever, Chills HEENT: Reports: No Symptoms Respiratory: Reports: No Symptoms Cardiovascular: Reports: No Symptoms GI/Abdominal: Reports: Hematochezia. Denies: Abdominal Pain, Nausea, Vomiting : Reports: No Symptoms ED EXAM, GENERAL - Physical Exam Exam: See Below Exam Limited By: No Limitations General Appearance: Alert, No Apparent Distress Head: Atraumatic Respiratory/Chest: No Respiratory Distress Cardiovascular: Regular Rate, Rhythm GI/Abdominal: Soft, Non-Tender Extremities: No Pedal Edema Neurological: Alert, Oriented Psychiatric: Normal Affect, Normal Mood Skin Exam: Warm, Dry Course - Re-Assessments/Exams Free Text/Narrative Re-Assessment/Exam: 10/26/20 06:40 CBC was obtained and WBC and hemoglobin are both normal. This was discussed with Dr. Sheikh, he recommended 1 g of TXA and 2000 mcg of factor VII. 10/26/20 06:41 Care turned over to Dr. Rios, plan is to repeat TXA in 3 hours. Consider repeating hemoglobin at that time if bleeding persists. Departure - Departure Disposition: Home, Self-Care 01 Clinical Impression: Rectal bleeding - Discharge Information Instructions: Rectal Bleeding, [id number] Referrals: Goyo Sunshine, DIRECTOR COMMUNICATIONS [Primary Care Provider] - Forms: ED Department Discharge Additional Instructions: Call Dr. Sheikh if your bleeding becomes heavy again. Continue your usual meds/diet. Sepsis Event Note (ED) - Evaluation Sepsis Screening Result: No Definite Risk <Elton Rios G - Last Filed: 10/26/20 10:27> Course - Vital Signs Text/Narrative:: Dr. 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 Labs: Laboratory Tests 10/26/20 Range/Units 06:01 WBC 7.1 (4.5-11.0) K/uL RBC 4.80 (4.30-5.90) M/uL Hgb 14.4 (12.0-15.0) g/dL Hct 43.2 (40.0-54.0) % MCV 90 (80-98) fL MCH 30 (27-31) pg MCHC 33 (32-36) % Plt Count 233 (150-400) K/uL Neut % (Auto) 58.6 (36-66) % Lymph % (Auto) 33.0 (24-44) % [place] % (Auto) 6.0 (2-6) % Eos % (Auto) 2.1 (2-4) % Baso % (Auto) 0.3 (0-1) % Meds: Medications Generic Name Dose Route Start Last Admin Trade Name Freq PRN Reason Stop Dose Admin Sodium Chloride 10 ml 10/26/20 09:08 Sodium Chloride 0.9% 10 Ml Syringe IV ASDIRECTED PRN LINE MAINTENCE Discontinued Medications Generic Name Dose Route Start Last Admin Trade Name Freq PRN Reason Stop Dose Admin Factor VIIa (Recombinant) 2,000 mcg 10/26/20 06:19 10/26/20 07:00 Coagulation Factor Viia Recombinant (Per Mcg) 2 Mg Vial IVPUSH 10/26/20 06:20 2,000 mcg ONETIME ONE Administration Tranexamic Acid 1,000 mg/ 60 mls @ 200 mls/hr 10/26/20 06:19 10/26/20 07:05 Sodium Chloride IV 10/26/20 06:36 200 mls/hr ONETIME ONE Administration Tranexamic Acid 1,000 mg/ 60 mls @ 200 mls/hr 10/26/20 10:00 10/26/20 10:00 Sodium Chloride IV 10/26/20 10:17 200 mls/hr ONETIME ONE Administration Departure - Departure Time of Disposition: 10:27 Condition: Fair - Discharge Information *PRESCRIPTION DRUG MONITORING PROGRAM REVIEWED*: Not Applicable *COPY OF PRESCRIPTION DRUG MONITORING REPORT IN PATIENT MARTHA: Not Applicable Sepsis Event Note (ED) - Focused Exam Vital Signs: Vital Signs Temp Pulse Resp BP Pulse Ox 10/26/20 09:30 58 L 12 145/78 H 98 10/26/20 08:30 60 14 144/62 H 98 10/26/20 07:26 53 L 16 132/72 97 10/26/20 05:29 36.3 C 61 16 164/84 H 99 10/26/20 05:24 36.3 C 61 16 164/84 H 99 - My Orders Last 24 Hours: My Active Orders 10/26/20 09:08 Sodium Chloride 0.9% [Saline Flush] 10 ml IV ASDIRECTED PRN - Assessment/Plan Last 24 Hours: My Active Orders 10/26/20 09:08 Sodium Chloride 0.9% [Saline Flush] 10 ml IV ASDIRECTED PRN
[2020-10-26] MEDS ORDERED: Sodium Chloride 0.9% 10 ML Syringe IV PRN (09:08)
[2020-10-26 10:02] VITALS: BP 145/78; PULSE 58
== END 2020-10-26 10:36 | disposition home or self-care (01) ==
LOC: JP.ED 05:06
DX: K62.5 Hemorrhage of anus and rectum (principal); M19.90 Unspecified osteoarthritis, unspecified site; E11.9 Type 2 diabetes mellitus without complications; Z88.0 Allergy status to penicillin; Z88.8 Allergy status to other drugs, medicaments and biological substances; Z88.5 Allergy status to narcotic agent; Z79.82 Long term (current) use of aspirin; Z79.899 Other long term (current) drug therapy
CPT/HCPCS: 36415; 85025; 96365; 96366; 96375; 99283; J7189

== ENCOUNTER 2021-02-03 05:33 | Day surgery (SDC) | payer BC, MEDICARE ==
[2021-02-03] MEDS ORDERED: Dextrose 5%-Lactated Ringers 1,000 ML IV SCH (06:01)
[2021-02-03] MEDS ORDERED: Levofloxacin/Dextrose 5%-Water 500 MG in Premix Bag 1 BAG IV ONE (07:00)
[2021-02-03] MEDS ORDERED: fentaNYL 100 MCG/2 ML SDV ONE (07:12)
[2021-02-03] MEDS ORDERED: Propofol 200 MG/20 ML SDV ONE (07:12)
[2021-02-03 14:05] VITALS: BP 165/91; PULSE 79
--- NOTE | 2021-02-06 13:29 | OR ---
DATE OF PROCEDURE: 02/03/2021 SURGEON: Dariusz Sheikh MD PREOPERATIVE DIAGNOSIS: History of polypoid tissue at the colorectal anastomosis. POSTOPERATIVE DIAGNOSIS: Persistent/recurrent polypoid tissue with colorectal anastomosis. OPERATIVE PROCEDURE: Flexible sigmoidoscopy with: 1. Biopsies of polypoid tissue at the colorectal anastomosis (80449). 2. Cautery ablation of areas of polypoid tissue with colorectal anastomosis (73298). ANESTHESIA: IV sedation. INDICATIONS FOR PROCEDURE: The patient presents for followup colonoscopy. He has had repeated ablations of the tissue at the colorectal anastomosis. It has been found to be adenomatous in nature. Plan is to proceed with a flexible sigmoidoscopy with biopsies and ablation as indicated. Potential risks of the procedure including bleeding and perforation were discussed, and the patient wishes to proceed. DETAILS OF PROCEDURE: The patient was taken to the operating room and placed in a left lateral decubitus position. IV sedation was administered after which the initial digital rectal exam was performed and was unremarkable. Colonoscope was then passed into the rectum and passed up to the level of the colorectal anastomosis. A roughly 15% diameter of the anastomosis appeared to be involved with some recurrent polypoid tissue. Some of this was covered with some fibrinous exudate just inferior to that. These 2 sections were biopsied and sent separately for histologic evaluation. Following this, the entire area of involvement was ablated until there was no visible polypoid tissue remaining and the patient tolerated the procedure well. Good hemostasis was confirmed. The patient was taken to the recovery room in satisfactory condition. The [place] and we will see him back for followup flexible sigmoidoscopy as indicated. If he is having persistent recurrence, at that point one might consider a consultation with the colorectal surgeons at the [facility]. Dariusz Sheikh MD /[id number]
== END 2021-02-03 09:00 | disposition home or self-care (01) ==
LOC: JP.SDS 05:33
PROVIDERS: ATTEND Surgery
DX: D12.5 Benign neoplasm of sigmoid colon (principal); K91.89 Other postprocedural complications and disorders of digestive system; Z98.0 Intestinal bypass and anastomosis status; E78.5 Hyperlipidemia, unspecified; E11.9 Type 2 diabetes mellitus without complications
CPT/HCPCS: 45331; 45346; 88305; J1956; J2704; J3010; J7121

== ENCOUNTER 2021-09-06 12:09 | Emergency (ER) | payer MEDICARE, BC ==
[2021-09-06 12:49] VITALS: BP 136/61; PULSE 54
[2021-09-06] MEDS ORDERED: Diphtheria,Pertussis(Acell),Tetanus Vaccine 0.5 ML Syringe IM ONE (13:12)
[2021-09-06] MEDS ORDERED: Bacitracin Oint 1 GM U/D Packet TOP ONE (13:12)
== END 2021-09-06 13:16 | disposition home or self-care (01) ==
LOC: JP.ED 12:09
DX: S36.30XA Unspecified injury of stomach, initial encounter (principal); I48.91 Unspecified atrial fibrillation; E11.9 Type 2 diabetes mellitus without complications; Z90.49 Acquired absence of other specified parts of digestive tract; Z88.8 Allergy status to other drugs, medicaments and biological substances; Z79.01 Long term (current) use of anticoagulants; Z87.891 Personal history of nicotine dependence; W26.8XXA Contact with other sharp object(s), not elsewhere classified, initial encounter
CPT/HCPCS: 99282; 99283

== ENCOUNTER 2022-07-16 07:33 | Day surgery (SDC) | payer MEDICARE, BC ==
[~2022-07-16 07:33] MED LIST changes: +Bupivacaine 0.5% 50 ML MDV ONE; -Dextrose 5%-Lactated Ringers 1,000 ML IV SCH; +Lidocaine 1% with EPINEPHrine 1:100,000 50 ML MDV ONE; -Midazolam 1 MG/ML 2 ML SDV ONE; -Propofol 200 MG/20 ML SDV ONE; -cefOXitin 2 GM in Sodium Chloride 0.9% 50 ML IV ONE; -fentaNYL 100 MCG/2 ML SDV ONE
[2022-07-16] MEDS ORDERED: Dextrose 5%-Lactated Ringers 1,000 ML IV SCH (08:00)
[2022-07-16] MEDS ORDERED: Linezolid 600 MG in Premix Bag 1 BAG IV ONE (08:15)
[2022-07-16] MEDS ORDERED: fentaNYL 100 MCG/2 ML SDV ONE ×2 (08:32→09:08)
[2022-07-16] MEDS ORDERED: Propofol 200 MG/20 ML SDV ONE ×3 (08:33→09:52)
[2022-07-16] MEDS ORDERED: Midazolam 1 MG/ML 2 ML SDV ONE (09:09)
[2022-07-16 11:04] VITALS: BP 133/68; PULSE 54
== END 2022-07-16 11:25 | disposition home or self-care (01) ==
LOC: JP.SDS 07:33
PROVIDERS: ATTEND Surgery
DX: C18.9 Malignant neoplasm of colon, unspecified (principal); I48.91 Unspecified atrial fibrillation; E78.5 Hyperlipidemia, unspecified; B19.20 Unspecified viral hepatitis C without hepatic coma; E11.9 Type 2 diabetes mellitus without complications; Z79.899 Other long term (current) drug therapy; Z88.1 Allergy status to other antibiotic agents
CPT/HCPCS: 36561; 77001; C1788; J1642; J2020; J2704; J3010; J3490; J7121; J2250

== ENCOUNTER 2022-08-05 08:51 | Day surgery (SDC) | payer MEDICARE, BC ==
[~2022-08-05 08:51] MED LIST changes: -Bupivacaine 0.5% 50 ML MDV ONE; +Bupivacaine 0.5%/EPINEPHrine 1:200,000 50 ML MDV ONE; -Lidocaine 1% with EPINEPHrine 1:100,000 50 ML MDV ONE; +Meropenem 500 MG SDV ONE
[2022-08-05] MEDS ORDERED: Levofloxacin/Dextrose 5%-Water 500 MG in Premix Bag 1 BAG IV ONE (09:15)
[2022-08-05] MEDS ORDERED: Dextrose 5%-Lactated Ringers 1,000 ML IV SCH (09:15)
[2022-08-05 09:17] LABS: HEMOGLOBIN 9.6 g/dL (12.9-16.9); MEAN CORPUSCULAR HEMOGLOBIN 28.2 pg (31.6-35.5); MEAN CORPUSCULAR HGB CONC 33.1 g/dL (31.6-35.5); RED BLOOD CELL COUNT 3.41 M/uL (4.14-5.76); WHITE BLOOD CELL COUNT,WBC 11.4 K/uL (3.2-11.0)
[2022-08-05] MEDS ORDERED: Ondansetron 4 MG/2 ML SDV ONE (09:33)
[2022-08-05] MEDS ORDERED: Neostigmine Methylsulfate 1 MG/ML 5 ML Syringe ONE (09:33)
[2022-08-05] MEDS ORDERED: Succinylcholine 200 MG/10 ML MDV ONE (09:33)
[2022-08-05] MEDS ORDERED: Glycopyrrolate 0.2 MG/ML 5 ML MDV ONE (09:33)
[2022-08-05] MEDS ORDERED: Rocuronium 50 MG/5 ML Vial ONE (09:33)
[2022-08-05] MEDS ORDERED: Propofol 200 MG/20 ML SDV ONE (09:33)
[2022-08-05] MEDS ORDERED: fentaNYL 250 MCG/5 ML SDV ONE (09:33)
[2022-08-05] MEDS ORDERED: Dexamethasone 4 MG/ML SDV ONE (09:33)
[2022-08-05 09:36] LABS: A/G RATIO 0.5 (1.2-2.2); ALANINE AMINOTRANSFERASE,ALT 21 U/L (12-78); ALBUMIN 2.6 g/dL (3.4-5.0); ALKALINE PHOSPHATASE 80 U/L (46-116); ASPARTATE AMNIOTRANSFERASE,AST 34 U/L (15-37); BILIRUBIN TOTAL 0.5 mg/dL (0.2-1.0); BLOOD UREA NITROGEN,BUN 25 mg/dL (7-18); CALCIUM 8.7 mg/dL (8.5-10.1); CARBON DIOXIDE,CO2 25 mmol/L (21-32); CHLORIDE,CL 98 mmol/L (100-108); CREATININE 1.1 mg/dL (0.8-1.3); ESTIMATED GFR 72 mL/min (>60); GLUCOSE RANDOM 134 mg/dL (74-106); MAGNESIUM 1.9 mg/dL (1.8-2.4); PHOSPHORUS 3.2 mg/dL (2.5-4.9); POTASSIUM,K 3.8 mmol/L (3.6-5.2); PROTEIN TOTAL,TP 7.6 g/dL (6.4-8.2); SODIUM,NA 132 mmol/L (140-148)
[2022-08-05 09:38] LABS: ANION GAP 12.8 mmol/L (5.0-14.0)
[2022-08-05] MEDS ORDERED: fentaNYL 100 MCG/2 ML SDV IVPUSH ONE (10:47)
[2022-08-05] MEDS ORDERED: Naloxone 0.4 MG/ML SDV IVPUSH PRN (10:47)
[2022-08-05 14:20] VITALS: BP 123/51; PULSE 56
== END 2022-08-05 14:49 | disposition home or self-care (01) ==
LOC: JP.SDS 08:51
PROVIDERS: ATTEND Surgery
DX: K65.1 Peritoneal abscess (principal); C20 Malignant neoplasm of rectum; G89.3 Neoplasm related pain (acute) (chronic); K61.1 Rectal abscess; M25.552 Pain in left hip; E11.9 Type 2 diabetes mellitus without complications; E78.5 Hyperlipidemia, unspecified; M17.12 Unilateral primary osteoarthritis, left knee; M16.12 Unilateral primary osteoarthritis, left hip; Z88.0 Allergy status to penicillin; Z88.5 Allergy status to narcotic agent; Z79.891 Long term (current) use of opiate analgesic; Z79.2 Long term (current) use of antibiotics; Z79.1 Long term (current) use of non-steroidal anti-inflammatories (NSAID); Z79.899 Other long term (current) drug therapy; Z79.82 Long term (current) use of aspirin; Z88.8 Allergy status to other drugs, medicaments and biological substances; Z87.891 Personal history of nicotine dependence
CPT/HCPCS: 11004; 36415; 49060; 80053; 83735; 84100; 85027; 87070; 87075; 87077; 87186; 87205; J0131; J0330; J1100; J1642; J1956; J2405; J2704; J2710; J3010; J3490; J7121; 88304; 88312; 88341; 88342; J2185

== ENCOUNTER 2022-09-23 09:10 | Day surgery (SDC) | payer MEDICARE, BC ==
[~2022-09-23 09:10] MED LIST changes: +Bupivacaine 0.5% 50 ML MDV ONE; -Bupivacaine 0.5%/EPINEPHrine 1:200,000 50 ML MDV ONE; +Lidocaine 1% with EPINEPHrine 1:100,000 50 ML MDV ONE; -Meropenem 500 MG SDV ONE; +Midazolam 1 MG/ML 2 ML SDV ONE; +Propofol 200 MG/20 ML SDV ONE; +fentaNYL 100 MCG/2 ML SDV ONE
[2022-09-23] MEDS ORDERED: Acetaminophen 500 MG Tab PO ONE (09:15)
[2022-09-23] MEDS ORDERED: Dextrose 5%-Lactated Ringers 1,000 ML IV SCH (09:30)
[2022-09-23] MEDS ORDERED: Bupivacaine 0.5%/EPINEPHrine 1:200,000 50 ML MDV ONE (09:40)
[2022-09-23] MEDS ORDERED: Lidocaine 1% 50 ML MDV ONE (09:40)
[2022-09-23] MEDS ORDERED: Linezolid 600 MG in Premix Bag 1 BAG IV ONE (10:00)
[2022-09-23] MEDS ORDERED: Propofol 200 MG/20 ML SDV ONE ×2 (10:42→11:12)
[2022-09-23] MEDS ORDERED: Linezolid 600 MG/300 ML Premix Bag IRR ONE (11:05)
[2022-09-23 12:54] VITALS: PULSE 46
[2022-09-23 12:55] VITALS: BP 135/60
== END 2022-09-23 13:18 | disposition home or self-care (01) ==
LOC: JP.SDS 09:10
PROVIDERS: ATTEND Surgery
DX: T82.594A Other mechanical complication of infusion catheter, initial encounter (principal); C18.9 Malignant neoplasm of colon, unspecified; Z88.0 Allergy status to penicillin; Z88.5 Allergy status to narcotic agent; Z88.8 Allergy status to other drugs, medicaments and biological substances
CPT/HCPCS: 36561; 36590; 87070; 87075; 87205; A9270; C1788; J1642; J2020; J2250; J2704; J3010; J3490; J7121; J2001

== ENCOUNTER 2022-09-23 15:27 | Emergency (ER) | payer MEDICARE, BC ==
[2022-09-23] MEDS ORDERED: Sodium Chloride 0.9% 10 ML Syringe FLUSH PRN (15:41)
[2022-09-23 16:43] LABS: BASOPHILS ABSOLUTE AUTO 0.03 K/uL (0.00-0.10); BASOPHILS PERCENT AUTO 0.5 % (0.1-1.3); EOSINOPHILS ABSOLUTE AUTO 0.22 K/uL (0.00-0.40); EOSINOPHILS PERCENT AUTO 3.5 % (0.0-5.4); HEMOGLOBIN 11.9 g/dL (12.9-16.9); IMMATURE GRAN PERCENT AUTO 0.3 % (0.0-0.7); LYMPHOCYTES PERCENT AUTO 23.6 % (11.4-47.7); MEAN CORPUSCULAR HEMOGLOBIN 33.5 pg (31.6-35.5); MEAN CORPUSCULAR VOLUME 98.6 fL (81.4-99.0); MONOCYTES ABSOLUTE AUTO 0.98 K/uL (0.20-0.90); MONOCYTES PERCENT AUTO 15.4 % (3.3-12.6); NEUTROPHILS ABSOLUTE AUTO 3.61 K/uL (1.0-7.6); NEUTROPHILS PERCENT AUTO 56.7 % (40.0-78.1); PLATELET COUNT,PLT 98 K/uL (130-375); RED BLOOD CELL COUNT 3.55 M/uL (4.14-5.76); WHITE BLOOD CELL COUNT,WBC 6.4 K/uL (3.2-11.0)
[2022-09-23 16:44] LABS: BASE EXCESS VENOUS 0.6 mm/L; CARBOXYHEMOGLOBIN 2.8 % (0.0-1.6); METHEMOGLOBIN 0.8 %; O2 SATURATION VENOUS 77.3; OXYHEMOGLOBIN 74.5 %; PH,VENOUS 7.393 (7.350-7.450); PO2 VENOUS 45.5 mm/Hg; TOTAL HEMOGLOBIN 12.3 g/dL (13.5-18.0)
[2022-09-23 16:45] LABS: IMMATURE GRAN ABSOLUTE AUTO 0.02 K/uL (0.00-0.23)
[2022-09-23 17:09] LABS: INR 1.2; PROTHROMBIN TIME 11.6 sec (9.2-10.6); PTT,PARTIAL THROMBOPLSTIN TIME 27.2 sec (21.8-27.3)
[2022-09-23 17:12] LABS: A/G RATIO 0.8 (1.2-2.2); ALANINE AMINOTRANSFERASE,ALT 26 U/L (12-78); ALBUMIN 3.1 g/dL (3.4-5.0); ALKALINE PHOSPHATASE 85 U/L (46-116); ANION GAP 8.5 mmol/L (5.0-14.0); ASPARTATE AMNIOTRANSFERASE,AST 45 U/L (15-37); BILIRUBIN TOTAL 0.9 mg/dL (0.2-1.0); BLOOD UREA NITROGEN,BUN 18 mg/dL (7-18); CALCIUM 8.7 mg/dL (8.5-10.1); CARBON DIOXIDE,CO2 26 mmol/L (21-32); CHLORIDE,CL 107 mmol/L (100-108); EST CRCL DRUG DOSING (CG) 74.37 mL/min; ESTIMATED GFR 80 mL/min (>60); GLUCOSE RANDOM 92 mg/dL (74-106); POTASSIUM,K 3.7 mmol/L (3.6-5.2); PROTEIN TOTAL,TP 6.8 g/dL (6.4-8.2); SODIUM,NA 141 mmol/L (140-148); TROPONIN I HIGH SENSITIVITY 14.9 pg/mL (<=60.3)
[2022-09-23 18:09] VITALS: BP 118/55; PULSE 51
== END 2022-09-23 18:30 | disposition home or self-care (01) ==
LOC: JP.ED 15:27
DX: R41.0 Disorientation, unspecified (principal); R40.0 Somnolence; F11.90 Opioid use, unspecified, uncomplicated; F90.0 Attention-deficit hyperactivity disorder, predominantly inattentive type; E11.9 Type 2 diabetes mellitus without complications; I48.91 Unspecified atrial fibrillation; E78.00 Pure hypercholesterolemia, unspecified; K21.9 Gastro-esophageal reflux disease without esophagitis; C18.9 Malignant neoplasm of colon, unspecified; T82.594A Other mechanical complication of infusion catheter, initial encounter; Z88.0 Allergy status to penicillin; Z88.5 Allergy status to narcotic agent; Z88.8 Allergy status to other drugs, medicaments and biological substances; Z79.899 Other long term (current) drug therapy
CPT/HCPCS: 36415; 36561; 36590; 70450; 71045; 80053; 82140; 82803; 82947; 83605; 84145; 84484; 85025; 85610; 85730; 87070; 87075; 87205; 93005; 99284; A9270; C1788; J1642; J2020; J2250; J2704; J3010; J3490; J7121; 93010; J2001

== ENCOUNTER 2022-12-10 11:11 | Emergency (ER) | payer MEDICARE, BC ==
[2022-12-10] MEDS ORDERED: Sodium Chloride 0.9% 10 ML Syringe FLUSH PRN (11:36)
[2022-12-10] MEDS ORDERED: Furosemide 20 MG/2 ML VIAL IVPUSH ONE (11:48)
[2022-12-10] MEDS ORDERED: cefTRIAXone 1 GM in Sodium Chloride 0.9% 50 ML IV ONE (11:48)
[2022-12-10 12:17] LABS: BASOPHILS ABSOLUTE AUTO 0.03 K/uL (0.00-0.10); BASOPHILS PERCENT AUTO 0.2 % (0.1-1.3); EOSINOPHILS ABSOLUTE AUTO 0.03 K/uL (0.00-0.40); EOSINOPHILS PERCENT AUTO 0.2 % (0.0-5.4); HEMATOCRIT 32.4 % (38.4-49.7); HEMOGLOBIN 11.2 g/dL (12.9-16.9); IMMATURE GRAN PERCENT AUTO 0.7 % (0.0-0.7); LYMPHOCYTES ABSOLUTE AUTO 1.22 K/uL (0.8-3.3); LYMPHOCYTES PERCENT AUTO 8.1 % (11.4-47.7); MEAN CORPUSCULAR HEMOGLOBIN 34.1 pg (31.6-35.5); MEAN CORPUSCULAR HGB CONC 34.6 g/dL (31.6-35.5); MEAN CORPUSCULAR VOLUME 98.8 fL (81.4-99.0); MONOCYTES ABSOLUTE AUTO 1.09 K/uL (0.20-0.90); MONOCYTES PERCENT AUTO 7.2 % (3.3-12.6); NEUTROPHILS ABSOLUTE AUTO 12.68 K/uL (1.0-7.6); NEUTROPHILS PERCENT AUTO 83.6 % (40.0-78.1); PLATELET COUNT,PLT 268 K/uL (130-375); RED BLOOD CELL COUNT 3.28 M/uL (4.14-5.76); WHITE BLOOD CELL COUNT,WBC 15.2 K/uL (3.2-11.0)
[2022-12-10 12:19] LABS: BASE EXCESS VENOUS 1.6 mm/L; BICARBONATE,VENOUS 24.8 mmol/L; CARBOXYHEMOGLOBIN 2.9 % (0.0-1.6); METHEMOGLOBIN 0.7 %; O2 SATURATION VENOUS 80.3; OXYHEMOGLOBIN 77.4 %; PCO2 VENOUS 35.9 mm/Hg; PH,VENOUS 7.454 (7.350-7.450); TOTAL HEMOGLOBIN 11.6 g/dL (13.5-18.0)
[2022-12-10] MEDS ORDERED: Acetaminophen 500 MG Tab PO ONE (12:36)
[2022-12-10 12:41] LABS: INR 1.2; PROTHROMBIN TIME 12.4 sec (9.2-10.6); PTT,PARTIAL THROMBOPLSTIN TIME 26.3 sec (21.8-27.3)
[2022-12-10 12:44] LABS: A/G RATIO 0.5 (1.2-2.2); ALANINE AMINOTRANSFERASE,ALT 22 U/L (12-78); ALBUMIN 2.3 g/dL (3.4-5.0); ALKALINE PHOSPHATASE 122 U/L (46-116); ASPARTATE AMNIOTRANSFERASE,AST 47 U/L (15-37); BILIRUBIN TOTAL 0.8 mg/dL (0.2-1.0); BLOOD UREA NITROGEN,BUN 20 mg/dL (7-18); CALCIUM 8.2 mg/dL (8.5-10.1); CARBON DIOXIDE,CO2 25 mmol/L (21-32); CHLORIDE,CL 100 mmol/L (100-108); EST CRCL DRUG DOSING (CG) 73.29 mL/min; ESTIMATED GFR 80 mL/min (>60); GLUCOSE RANDOM 146 mg/dL (74-106); PROTEIN TOTAL,TP 6.6 g/dL (6.4-8.2); SODIUM,NA 133 mmol/L (140-148)
[2022-12-10] MEDS ORDERED: Sulfamethoxazole/Trimethoprim 20 ML in Dextrose 5% in Water 500 ML IV SCH ×4 (12:45→13:30)
[2022-12-10 12:49] LABS: LACTIC ACID 2.5 mmol/L (0.4-2.0)
[2022-12-10 13:33] LABS: APPEARANCE,URINE CLEAR (CLEAR); BILIRUBIN,URINE NEGATIVE (NEGATIVE); COLOR,URINE YELLOW (YELLOW); GLUCOSE,URINE NEGATIVE (NEGATIVE); KETONES,URINE NEGATIVE (NEGATIVE); LEUKOCYTE ESTERASE,URINE NEGATIVE (NEGATIVE); NITRITE,URINE NEGATIVE (NEGATIVE); OCCULT BLOOD,URINE NEGATIVE (NEGATIVE); PH,URINE 5.5 (5.0-8.0); PROTEIN,URINE NEGATIVE (NEGATIVE); UROBILINOGEN,URINE 0.2 EU/dL (0.2-1.0)
[2022-12-10 13:33] LABS: CORONAVIRUS COVID-19 NAA NEGATIVE (NEGATIVE); INFLUENZA A NAA NEGATIVE (NEGATIVE); INFLUENZA B NAA NEGATIVE (NEGATIVE); RESPIRATORY SYNCYTIAL VIR NAA NEGATIVE (NEGATIVE)
[2022-12-10 13:39] LABS: AMORPHOUS SEDIMENT,URINE NOT SEEN; BACTERIA,URINE NOT SEEN; EPITHELIAL CELLS,URINE FEW; MUCUS,URINE FEW; RBC,URINE NOT SEEN (0-5); WBC,URINE 0-5 (0-5)
[2022-12-10] MEDS ORDERED: oxyCODONE 5 MG Tab PO ONE ×2 (14:42→15:39)
[2022-12-10] MEDS ORDERED: Sodium Chloride 0.9% 1,000 ML IV SCH (14:45)
[2022-12-10 16:45] VITALS: BP 115/55; PULSE 57
== END 2022-12-10 17:05 ==
LOC: JP.ED 11:11
DX: J96.01 Acute respiratory failure with hypoxia (principal); J18.9 Pneumonia, unspecified organism; E11.9 Type 2 diabetes mellitus without complications; I48.91 Unspecified atrial fibrillation; E78.00 Pure hypercholesterolemia, unspecified; Z20.822 Contact with and (suspected) exposure to COVID-19; Z88.0 Allergy status to penicillin; Z88.5 Allergy status to narcotic agent; Z88.8 Allergy status to other drugs, medicaments and biological substances; Z92.21 Personal history of antineoplastic chemotherapy
CPT/HCPCS: 0241U; 36415; 71045; 71045-26; 80053; 81001; 82803; 83605; 84145; 85025; 85610; 85730; 87040; 87449; 96365; 96367; 96375; 99285-25; A9270-GY; J0696; J1940; J3490; J7030; J7060